=== PATIENT | male | born 1980 | race African-American/Black ===

== ENCOUNTER 2018-06-08 14:24 | Emergency (ER) | payer SELFPAY ==
[2018-06-08] MEDS ORDERED: ONDANSETRON 4 MG/2 ML VIAL IVPUSH ONE (14:38)
[2018-06-08] MEDS ORDERED: SODIUM CHLORIDE 1,000 ML IV STA (14:38)
--- NOTE | 2018-06-08 14:38 | PDOC ---
Rapid Medical Evaluation Chief Complaint: Nausea/Vomiting Time Seen by Provider: 06/08/18 14:37 Medical Evaluation: Allergies Allergy/AdvReac Type Severity Reaction Status Date / Time No Known Allergies Allergy Verified 06/08/18 14:34 06/08/18 14:37 The patient presents with a chief complaint of: abd pain I have performed a brief in-person evaluation of this patient. Pertinent physical exam findings: vss, I have ordered the following: labs, zofran, fluids The patient will proceed to the ED for further evaluation.
[2018-06-08 14:40] VITALS: BMI 27.1
--- NOTE | 2018-06-08 14:51 | PDOC ---
History of Present Illness - General Chief Complaint: Nausea/Vomiting Stated Complaint: VOMITTING /SIDE PAIN Time Seen by Provider: 06/08/18 14:37 - History of Present Illness Initial Comments: 37 year old smoker with PMH of hernia repair 30 years prior presenting with acute on chronic right lower quadrant pain, nausea, and vomiting. Patient states that he has had right lower quadrant abdominal pain for the past month, sharp, intermittent, maximum of 7/10, without obvious exacerbating/ relieving factors. States that the pain occasionally radiates down his right groin. He is coming in today because he has NBNB nausea/ vomiting x 1 about an hour prior to presentation. He is an occasional-moderate drinker with 5-6 drinks on infrequent weekends. Denies any recent travel, fevers, chills, diarrhea, headache, or other symptoms. He currently does not have a PCP because of insurance issues but was followed for years without known issues. 06/08/18 15:33 Past History - Past Medical History Allergies/Adverse Reactions: Allergies Allergy/AdvReac Type Severity Reaction Status Date / Time No Known Allergies Allergy Verified 06/08/18 14:34 COPD: No - Immunization History Immunization Up to Date: Yes - Suicide/Smoking/Psychosocial Hx Smoking History: Current every day smoker Number of Cigarettes Smoked Daily: 20 Information on smoking cessation initiated: No Hx Alcohol Use: Yes Drug/Substance Use Hx: No Review of Systems - Review of Systems Constitutional: No: Chills, Diaphoresis, Fever, Loss of Appetite HEENTM: No: Eye Pain, Blurred Vision, Tearing, Ear Pain Respiratory: No: Cough, Shortness of Breath, Wheezing Cardiac (ROS): No: Chest Pain, Edema, Irregular Heart Rate ABD/GI: Yes: Nausea, Vomiting. No: Diarrhea, Rectal Bleeding, Abdominal cramping, Tarry Stools : No: Dysuria, Discharge, Frequency Musculoskeletal: No: Back Pain, Gout, Joint Pain *Physical Exam - Vital Signs Last Vital Signs Temp Pulse Resp BP Pulse Ox 99.0 F 71 18 120/76 84 L 06/08/18 14:35 06/08/18 14:35 06/08/18 14:35 06/08/18 14:35 06/08/18 14:35 - Physical Exam General Appearance: Yes: Nourished, Appropriately Dressed. No: Apparent Distress HEENT: positive: EOMI, BALTA, Normal ENT Inspection, Normal Voice Neck: positive: Trachea midline, Normal Thyroid, Supple. negative: Tender, Rigid Respiratory/Chest: positive: Lungs Clear, Normal Breath Sounds. negative: Chest Tender, Respiratory Distress, Accessory Muscle Use Cardiovascular: positive: Regular Rhythm, Regular Rate Gastrointestinal/Abdominal: positive: Normal Bowel Sounds, Flat, Soft. negative : Tender Male Genitalia: positive: normal genitalia, other (hydrocele on the left side). negative: discharge, testicular tenderness Musculoskeletal: positive: Normal Inspection. negative: CVA Tenderness, Decreased Range of Motion Extremity: positive: Normal Capillary Refill, Normal Inspection, Normal Range of Motion. negative: Tender Integumentary: positive: Normal Color, Dry, Warm Neurologic: positive: educational technologist II-XII NML intact, Fully Oriented, Alert, Normal Mood/ Affect, Normal Response, Motor Strength 01/02 ED Treatment Course - LABORATORY CBC & Chemistry Diagram: 06/08/18 15:13 06/08/18 15:13 Medical Decision Making - Medical Decision Making 37 year old male with PMH of smoking presenting with nonspecific intermittent right lower abdominal pain for the past month with one episode of nausea/ vomiting today. Ct demonstrating right renal calculus non-obstructing and UA demonstrated microscopic hematuria. Patient no longer in pain and would like to go home. Will set him up for a clinic appointment in two days. Counselled on follow up and return precautions. Will DC home. 06/08/18 18:40 *DC/Admit/Observation/Transfer Diagnosis at time of Disposition: Renal calculi - Discharge Dispostion Disposition: HOME Condition at time of disposition: Improved Decision to Admit order: No - Referrals Referrals: [facility] [place] [facility] [place] [Provider Group] - Patient Instructions Printed Discharge Instructions: DI for Kidney Stones Additional Instructions: Your pain was possibly due to a previous kidney stone that had passed by the time the CT scan was performed. You likely have had multiple kidney stones during the past month. You need to stay well hydrated and quit smoking. You need to follow up with the primary care doctor with whom we are setting you up an appointment. Please follow up with them. Please return to the ED if you have worsening pain, nausea, vomiting, or other symptoms. - Post Discharge Activity Forms/Work/School Notes: Back to Work
--- NOTE | 2018-06-08 15:00 | PDOC ---
Attending Attestation - HPI HPI: 06/08/18 15:49 The patient is a 37 year old male, daily tobacco smoker, with a significant past medical history of, who presents to the emergency department with one month of increased right lower abdominal pain which intensified today with associated nausea and vomiting today. He reports his pain is intermittent, 7/10 in severity, and without any exacerbating or alleviating factors. He states his right lower abdominal pain radiates down his right lower extremity. The patient denies chest pain, shortness of breath, headache and dizziness. The patient denies fever, chills, diarrhea and constipation. The patient denies dysuria, frequency, urgency and hematuria. Allergies: NKDA Past surgical history: hernia repair Social history: daily tobacco use, occasional ETOH - Physicial Exam PE: 06/08/18 15:49 ROS: A complete review of 10 out of 10 review of systems is taken and is negative apart from what is previously mentioned below and in the HPI. Vitals: Triage vital signs reviewed General Appearance: No acute distress, well nourished, well developed Head: Atraumatic Eyes: Pupils equal reactive round, extraocular movement intact Neck: Supple; No nuchal rigidity Abdomen: (+) RLQ ttp. Soft, nondistended, normal bowel sounds, nontender to palpation Genitourinary: deferred to Dr. Jacobsen Extremities: Full range of motion to all extremities, no cyanosis, clubbing, or edema Skin: Warm and dry, no rashes or lesions, no rash, no petechiae Neuro: AOX3; Cranial Nerves 2-12 grossly intact, Strength intact to all extremities, Sensation intact to all extremities, - Medical Decision Making 06/08/18 15:49 Documentation prepared by Divya Velarde, acting as medical assistant secretary for Husam Frederick MD, <Divya Velarde - Last Filed: 06/08/18 16:06> - Resident Resident Name: Jordi Jacobsen - ED Attending Attestation I have performed the following: I have examined & evaluated the patient, The case was reviewed & discussed with the resident, I agree w/resident's findings & plan, Exceptions are as noted - Medical Decision Making 37 years old with chronic right-sided abdominal discomfort. Today slightly worsening abdominal discomfort right sided associated with one episode of nausea No fever no elevated white blood cell count patient's laboratory analysis notable for slightly elevated LFTs and a slightly elevated lipase There was no right upper quadrant tenderness palpation on the patient's examination A CT of the patient's abdomen pelvis demonstrated no acute appendicitis and no obstructing kidney stones Patient's urinalysis was notable for the presence of red blood cells Currently patient is feeling better ambulating tolerating fluids asking to go home At this time history examination is most consistent with a recently passed kidney stone We have arranged for the patient to follow-up in her clinic in 1-2 days to have his blood work rechecked for further evaluation of his elevated LFTs in the meantime patient will hydrate take Aleve twice a day for the next 2 days he will return to the emergency department immediately for any fever any abdominal pain that returns or for any concerns. Findings, need for follow-up and strict return instructions discussed with patient. <Husam Frederick - Last Filed: 06/08/18 18:46>
[2018-06-08 15:29] LABS: BASO % 1.1 % (0-2.0); EOS % 0.1 % (0-4.5); HEMATOCRIT 40.3 % (35.4-49); HEMOGLOBIN 13.5 GM/dL (11.7-16.9); LYMPH % 23.6 % (8-40); MCH 31.7 pg (25.7-33.7); MCHC 33.5 g/dl (32.0-35.9); MEAN CELL VOLUME 94.5 fl (80-96); MEAN PLT VOLUME 8.1 fl (7.5-11.1); NEUT % 62.2 % (42.8-82.8); PLATELET COUNT 266 K/MM3 (134-434); RBC 4.26 M/mm3 (4.00-5.60); RDW 13.7 % (11.9-15.9); WHITE BLOOD COUNT 4.7 K/mm3 (4.0-10.0)
[2018-06-08] MEDS ORDERED: ONDANSETRON 4 MG/2 ML VIAL ONE (15:51)
[2018-06-08 15:57] LABS: ALBUMIN 4.1 g/dl (3.4-5.0); ALK PHOS 93 U/L (45-117); ANION GAP 7 MMOL/L (8-16); BILIRUBIN,TOTAL 1.1 mg/dL (0.2-1); BLOOD UREA NITROGEN 12 mg/dL (7-18); CALCIUM 9.6 mg/dL (8.5-10.1); CHLORIDE 106 mmol/L (98-107); CO2 27 mmol/L (21-32); CREATININE 0.9 mg/dL (0.55-1.3); GLUCOSE,RANDOM 88 mg/dL (74-106); LIPASE 70 U/L (73-393); POTASSIUM 3.8 mmol/L (3.5-5.1); SGOT/AST 84 U/L (15-37); SGPT/ALT 77 U/L (13-61); SODIUM 139 mmol/L (136-145); TOT PROT 7.8 g/dl (6.4-8.2)
[2018-06-08 17:03] LABS: URINE APPEARANCE CLEAR; URINE BILIRUBIN NEGATIVE (<2.0 mg/dL); URINE COLOR AMBER; URINE GLUCOSE (UA) NEGATIVE (NEGATIVE); URINE KETONE 1+ (NEGATIVE); URINE LEUK ESTERASE TRACE (NEGATIVE); URINE NITRITE NEGATIVE (NEGATIVE); URINE PROTEIN 2+ (NEGATIVE)
[2018-06-08 17:33] LABS: URINE BACTERIA RARE /hpf (NONE SEEN); URINE HYALINE CAST 3 /lpf; URINE MUCUS MANY
[2018-06-08 18:29] VITALS: BP 136/82; PULSE 59; TEMP 98.4
== END 2018-06-08 18:59 | disposition home or self-care (01) ==
LOC: JER 14:24
PROC: 3E0337Z Introduction of Electrolytic and Water Balance Substance into Peripheral Vein, Percutaneous Approach (ICD-10-PCS; principal; 2018-06-08)
DX: N20.0 Calculus of kidney (principal); R31.29 Other microscopic hematuria; F17.210 Nicotine dependence, cigarettes, uncomplicated
CPT/HCPCS: 36415; 71046-TC-FY; 74177-TC; 80053; 81003; 81015; 83690; 85025; 99282-25; J7030

== ENCOUNTER 2018-06-18 06:18 | Emergency (ER) | payer SELFPAY ==
[2018-06-18] MEDS ORDERED: ALBUTEROL SO4 2.5/IPRATROPIUM 0.5 INH SOL 3 ML VIAL.NEB. NEB ONE ×2 (06:34→08:32)
[2018-06-18 06:39] VITALS: TEMP 98.6; BMI 25.8
[2018-06-18] MEDS ORDERED: methylPREDNISolone NA SUCC 125 MG/2 ML VIAL IVPUSH ONE (06:48)
[2018-06-18] MEDS ORDERED: methylPREDNISolone NA SUCC 125 MG/2 ML VIAL ONE (06:58)
[2018-06-18 07:09] LABS: BASO % 0.6 % (0-2.0); EOS % 0.7 % (0-4.5); HEMATOCRIT 39.7 % (35.4-49); HEMOGLOBIN 13.5 GM/dL (11.7-16.9); LYMPH % 25.8 % (8-40); MCH 32.3 pg (25.7-33.7); MCHC 33.9 g/dl (32.0-35.9); MEAN CELL VOLUME 95.3 fl (80-96); MEAN PLT VOLUME 8.4 fl (7.5-11.1); MONO % 14.9 % (3.8-10.2); PLATELET COUNT 278 K/MM3 (134-434); RBC 4.17 M/mm3 (4.00-5.60); RDW 13.6 % (11.9-15.9); WHITE BLOOD COUNT 5.6 K/mm3 (4.0-10.0)
--- NOTE | 2018-06-18 07:19 | PDOC ---
History of Present Illness <Callie Wood - Last Filed: 06/18/18 09:23> - History of Present Illness Initial Comments: 37yo M with no significant PMH presenting with shortness of breath. Patient says that the recent cold weather has made it difficult to breathe. He denies a history of asthma, COPD, or sleep apnea despite being worked up previously with a sleep study. He has had issues with this since around age 8 or 9 and has snored loudly since that time. Patient has never been seen by an ENT doctor. He has smoked about 5-7 cigarettes daily for the past ten years. Also reporting cough productive of clear sputum and scratchy throat. No fevers, chills, or chest pain. <Callie Mirza - Last Filed: 06/18/18 21:05> - General Chief Complaint: Shortness of Breath Stated Complaint: DIFFICULTY BREATHING Time Seen by Provider: 06/18/18 07:17 Past History <Callie Wood - Last Filed: 06/18/18 09:23> - Past Medical History COPD: No - Immunization History Immunization Up to Date: Yes - Suicide/Smoking/Psychosocial Hx Smoking History: Current every day smoker Have you smoked in the past 12 months: Yes Number of Cigarettes Smoked Daily: 7 Information on smoking cessation initiated: No Hx Alcohol Use: No Drug/Substance Use Hx: No Substance Use Type: None <Callie Mirza Last Filed: 06/18/18 21:05> - Past Medical History Allergies/Adverse Reactions: Allergies Allergy/AdvReac Type Severity Reaction Status Date / Time No Known Allergies Allergy Verified 06/18/18 06:37 Home Medications: Ambulatory Orders predniSONE [Deltasone -] 40 mg PO DAILY #6 tablet 06/18/18 Review of Systems - Review of Systems Comments:: Constitutional: no fever, no chills HEENT: no throat pain, no dysphagia Cardiovascular: no chest pain, no palpitations Respiratory: +cough, +shortness of breath Gastrointestinal: no abdominal pain, no nausea, no vomiting Genitourinary: no dysuria, no frequency Musculoskeletal: no myalgia, no arthralgia Skin: no rash, no itching Neurologic: no headache, no dizziness <Callie Mirza Last Filed: 06/18/18 21:05> *Physical Exam - Vital Signs Last Vital Signs Temp Pulse Resp BP Pulse Ox 98.6 F 44 L 18 116/74 99 06/18/18 06:20 06/18/18 08:22 06/18/18 08:22 06/18/18 08:22 06/18/18 08:22 <Callie Wood - Last Filed: 06/18/18 09:23> - Vital Signs Last Vital Signs Temp Pulse Resp BP Pulse Ox 98.6 F 56 L 16 114/74 98 06/18/18 06:20 06/18/18 06:20 06/18/18 06:20 06/18/18 06:20 06/18/18 06:20 - Physical Exam Comments: General: Awake, alert, and fully oriented, in no acute distress Head: no signs of trauma Eyes: EOMI ENT: Moist mucus membranes; non erythematous throat with no lesions or masses; uvula midline Neck: Normal ROM, supple Lungs: Lungs clear, Normal breath sounds; Loud sonorous breathing noted when patient is sleeping Cardio: Regular rhythm, S1 and S2 present Abdomen: Soft, nontender. Extremities: Normal range of motion, Distal pulses present SKIN: Warm, Dry, normal turgor Neurologic: Cranial nerves II through XII grossly intact. Normal speech <Callie Mirza - Last Filed: 06/18/18 21:05> ED Treatment Course - LABORATORY CBC & Chemistry Diagram: 06/18/18 06:52 06/18/18 06:52 - ADDITIONAL ORDERS Additional order review: Laboratory Results 06/18/18 06:52 Sodium 138 Potassium 4.0 Chloride 103 Carbon Dioxide 29 Anion Gap 6 L BUN 16 Creatinine 0.9 Creat Clearance w eGFR > 60 Random Glucose 88 Calcium 8.8 Total Bilirubin 0.9 AST 42 H ALT 52 Alkaline Phosphatase 76 Total Protein 7.1 Albumin 3.8 06/18/18 08:50 Group A Strep Rapid Antigen - Final Throat 06/18/18 06:52 RBC 4.17 MCV 95.3 MCHC 33.9 RDW 13.6 MPV 8.4 Neutrophils % 58.0 Lymphocytes % 25.8 Monocytes % 14.9 H Eosinophils % 0.7 D Basophils % 0.6 - Medications Given in the ED: ED Medications Discontinued Medications Generic Name Dose Route Start Last Admin Trade Name Freq PRN Reason Stop Dose Admin Albuterol/Ipratropium 1 amp 06/18/18 08:32 06/18/18 08:54 Duoneb - NEB 06/18/18 08:33 Not Given ONCE ONE Methylprednisolone Sodium Succinate 125 mg 06/18/18 06:48 06/18/18 07:02 Solu-Medrol - IVPUSH 06/18/18 06:49 125 mg ONCE ONE Administration <Callie Wood - Last Filed: 06/18/18 09:23> - LABORATORY CBC & Chemistry Diagram: 06/18/18 06:52 06/18/18 06:52 - ADDITIONAL ORDERS Additional order review: 06/18/18 06:52 RBC 4.17 MCV 95.3 MCHC 33.9 RDW 13.6 MPV 8.4 Neutrophils % 58.0 Lymphocytes % 25.8 Monocytes % 14.9 H Eosinophils % 0.7 D Basophils % 0.6 - Medications Given in the ED: ED Medications Discontinued Medications Generic Name Dose Route Start Last Admin Trade Name Freq PRN Reason Stop Dose Admin Methylprednisolone Sodium Succinate 125 mg 06/18/18 06:48 06/18/18 07:02 Solu-Medrol - IVPUSH 06/18/18 06:49 125 mg ONCE ONE Administration <Callie Mirza - Last Filed: 06/18/18 21:05> Medical Decision Making - Medical Decision Making 37yo M with no significant PMH presenting with shortness of breath. -Labs: no anemia or leukocytosis -CXR: no acute pathology -Duoneb and solumedrol: patient reports some alleviation of his cough and shortness of breath. He says that after receiving the medicine, he has been able to fall asleep. - Rapid Strep test negative -ENT referral -Prednisone 40 x 3 days sent to pharmacy -Discharged. Patient amenable to plan. 06/18/18 21:02 <Callie Mirza - Last Filed: 06/18/18 21:05> *DC/Admit/Observation/Transfer - Discharge Dispostion Decision to Admit order: No <Callie Wood - Last Filed: 06/18/18 09:23> <Callie Mirza - Last Filed: 06/18/18 21:05> Diagnosis at time of Disposition: Shortness of breath - Discharge Dispostion Disposition: HOME Condition at time of disposition: Stable - Prescriptions Prescriptions: predniSONE [Deltasone -] 40 mg PO DAILY #6 tablet - Patient Instructions Printed Discharge Instructions: DI for Shortness of Breath Additional Instructions: Follow up with [facility] ENT clinic- call [phone] for appointment.
[2018-06-18 07:35] LABS: ALBUMIN 3.8 g/dl (3.4-5.0); ALK PHOS 76 U/L (45-117); ANION GAP 6 MMOL/L (8-16); BILIRUBIN,TOTAL 0.9 mg/dL (0.2-1); BLOOD UREA NITROGEN 16 mg/dL (7-18); CALCIUM 8.8 mg/dL (8.5-10.1); CHLORIDE 103 mmol/L (98-107); CO2 29 mmol/L (21-32); CREATININE 0.9 mg/dL (0.55-1.3); GLUCOSE,RANDOM 88 mg/dL (74-106); SGOT/AST 42 U/L (15-37); SGPT/ALT 52 U/L (13-61); SODIUM 138 mmol/L (136-145); TOT PROT 7.1 g/dl (6.4-8.2)
--- NOTE | 2018-06-18 07:48 | PDOC ---
Attending Attestation - Resident Resident Name: Callie Mirza - ED Attending Attestation I have performed the following: I have examined & evaluated the patient, The case was reviewed & discussed with the resident, I agree w/resident's findings & plan, Exceptions are as noted - HPI HPI: 37 yo M presents with SOB. He has chronic history of sonorous breathing and snoring for the past 20 years. Has been worked up with a sleep study previously but not by ENT. He states that he chronically has loud inspirations, but does not know why. Today he noticed he has shortness of breath, but no fever, leg swelling, chest pain. +Cough with clear sputum. +Sore throat. - Physicial Exam PE: GENERAL: Awake, alert, and fully oriented, in no acute distress. +Sonorous inspirations. HEAD: No signs of trauma EYES: PERRLA, EOMI, sclera anicteric, conjunctiva clear ENT: Auricles normal inspection, hearing grossly normal, nares patent, oropharynx erythematous without exudates. Uvula midline. Moist mucosa NECK: Normal ROM, supple, no lymphadenopathy, JVD, or masses LUNGS: Breath sounds equal, clear to auscultation bilaterally. No wheezes, and no crackles HEART: Regular rate and rhythm, normal S1 and S2, no murmurs, rubs or gallops ABDOMEN: Soft, nontender, normoactive bowel sounds. No guarding, no rebound. No masses EXTREMITIES: Normal range of motion, no edema. No clubbing or cyanosis. No cords, erythema, or tenderness NEUROLOGICAL: Cranial nerves II through XII grossly intact. Normal speech, normal gait SKIN: Warm, Dry, normal turgor, no rashes or lesions noted. - Medical Decision Making Pt with erythema of the throat, and in light of prior history of loud breathing (not stridor, as it is only with inspiration), will give a course of steroids for his pharyngitis. ENT referral to [facility] for further evaluation.
[2018-06-18 08:23] VITALS: BP 116/74; PULSE 44
== END 2018-06-18 09:56 | disposition home or self-care (01) ==
LOC: JER 06:18
PROC: 3E0F7GC Introduction of Other Therapeutic Substance into Respiratory Tract, Via Natural or Artificial Opening (ICD-10-PCS; principal; 2018-06-18)
PROC: 3E0333Z Introduction of Anti-inflammatory into Peripheral Vein, Percutaneous Approach (ICD-10-PCS; 2018-06-18)
DX: R06.02 Shortness of breath (principal)
CPT/HCPCS: 36415; 71045-TC-FY; 80053; 85025; 87070; 87430; 99282-25

== ENCOUNTER 2018-12-22 08:25 | Inpatient (IN) | payer OTHER ==
[2018-12-22 08:38] VITALS: BMI 26.6
[2018-12-22] MEDS ORDERED: ALBUTEROL SO4 2.5/IPRATROPIUM 0.5 INH SOL 3 ML VIAL.NEB. NEB ONE ×3 (09:30→10:00)
[2018-12-22] MEDS ORDERED: methylPREDNISolone NA SUCC 125 MG/2 ML VIAL IVPB ONE (09:30)
[2018-12-22] MEDS ORDERED: methylPREDNISolone NA SUCC 125 MG/2 ML VIAL ONE (09:31)
[2018-12-22 10:02] LABS: BASO % 0.8 % (0-2.0); EOS % 0.6 % (0-4.5); HEMATOCRIT 42.1 % (35.4-49); HEMOGLOBIN 14.4 GM/dL (11.7-16.9); LYMPH % 23.3 % (8-40); MCH 33.1 pg (25.7-33.7); MCHC 34.2 g/dl (32.0-35.9); MEAN CELL VOLUME 96.9 fl (80-96); MEAN PLT VOLUME 8.3 fl (7.5-11.1); MONO % 10.4 % (3.8-10.2); NEUT % 64.9 % (42.8-82.8); PLATELET COUNT 275 K/MM3 (134-434); RBC 4.34 M/mm3 (4.00-5.60); RDW 13.5 % (11.9-15.9); WHITE BLOOD COUNT 7.3 K/mm3 (4.0-10.0)
--- NOTE | 2018-12-22 10:18 | PDOC ---
Documentation entered by Divya Velarde SCRIBE, acting as scribe for Kathie Car MD. aKthie Car MD: This documentation has been prepared by the Prachi savage Amanda, SCRIBE, under my direction and personally reviewed by me in its entirety. I confirm that the documentation accurately reflects all work, treatment, procedures, and medical decision making performed by me. History of Present Illness - General Chief Complaint: Cold Symptoms Stated Complaint: cold symptoms Time Seen by Provider: 12/22/18 09:22 History Source: Patient Exam Limitations: No Limitations - History of Present Illness Initial Comments: 12/22/18 10:01 The patient is a 38 year old male with no significant past medical history, who presents to the emergency department with shortness of breath since yesterday morning. The patient reports associated chest tightness with his SOB. He denies use of nebulizers or inhalers at home. He denies recent illness. He denies recent travels. He states he had a similar episode last year and was found to have walking pneumonia. He reports shortness of breath at rest and increased with slight exertion. The patient denies chest pain, headache and dizziness. The patient denies fever , chills, diarrhea and constipation. The patient denies dysuria, frequency, urgency and hematuria. Allergies: NKDA Past surgical history: hernia repair Social history: 10+ year tobacco use (5-10 cigarettes) s/p 2 days cessation, occasional ETOH Past History - Past Medical History Allergies/Adverse Reactions: Allergies Allergy/AdvReac Type Severity Reaction Status Date / Time No Known Allergies Allergy Verified 12/22/18 08:38 Home Medications: Ambulatory Orders NK [No Known Home Medication] 12/22/18 COPD: No - Immunization History Immunization Up to Date: Yes - Suicide/Smoking/Psychosocial Hx Smoking History: Current every day smoker Have you smoked in the past 12 months: Yes Number of Cigarettes Smoked Daily: 7 Information on smoking cessation initiated: No Hx Alcohol Use: No Drug/Substance Use Hx: No Substance Use Type: None Review of Systems - Review of Systems Able to Perform ROS?: Yes Comments:: 12/22/18 10:01 CONSTITUTIONAL: Absent: fever, no chills, no fatigue EYES: Absent: visual changes ENT: Absent: ear pain, no sore throat CARDIOVASCULAR: Absent: chest pain, no palpitations RESPIRATORY: (+) SOB and chest tightness. Absent: cough GASTROINTESTINAL: Absent: abdominal pain, no nausea, no vomiting, no constipation, no diarrhea GENITOURINARY: Absent: dysuria, no frequency, no hematuria MUSCULOSKELETAL: Absent: back pain, no arthralgia, no myalgia SKIN: Absent: rash NEURO: Absent: headache *Physical Exam - Vital Signs Last Vital Signs Temp Pulse Resp BP Pulse Ox 98 F 63 18 114/75 98 12/22/18 08:36 12/22/18 08:36 12/22/18 08:36 12/22/18 08:36 12/22/18 08:36 - Physical Exam Comments: 12/22/18 10:02 GENERAL: The patient is in no acute distress. HEAD: Normal EYES: PERRLA, EOMI, sclera anicteric, conjunctiva clear. ENT: Ears normal, nares patent, oropharynx clear without exudates. Moist mucous membranes. NECK: Normal range of motion, supple without lymphadenopathy, JVD, or masses. LUNGS: (+) faint expiratory wheezing. (+) stridor noted particularly when pt drifts off to sleep. Breath sounds equal, clear to auscultation bilaterally. no crackles. HEART:Regular rate and rhythm, normal S1 and S2 without murmur, rub or gallop. ABDOMEN: Soft, nontender, no guarding, no rebound. EXTREMITIES: Normal range of motion, No clubbing NEUROLOGICAL: Cranial nerves II through XII grossly intact. Normal speech. No focal neurological deficits. SKIN: Warm, Dry, normal turgor, no rashes or lesions noted. 12/24/18 08:30 ED Treatment Course - LABORATORY CBC & Chemistry Diagram: 12/23/18 07:40 12/23/18 07:40 - ADDITIONAL ORDERS Additional order review: 12/22/18 09:55 RBC 4.34 MCV 96.9 H MCHC 34.2 RDW 13.5 MPV 8.3 Neutrophils % 64.9 Lymphocytes % 23.3 Monocytes % 10.4 H Eosinophils % 0.6 Basophils % 0.8 - RADIOLOGY Radiology Studies Ordered: Category Date Time Status CHEST X-RAY PORTABLE* [RAD] Stat Radiology 12/22/18 09:30 Completed - Medications Given in the ED: ED Medications Discontinued Medications Generic Name Dose Route Start Last Admin Trade Name Freq PRN Reason Stop Dose Admin Albuterol/Ipratropium 1 amp 12/22/18 09:30 12/22/18 09:36 Duoneb - NEB 12/22/18 09:31 1 amp ONCE ONE Administration Albuterol/Ipratropium 1 amp 12/22/18 10:00 12/22/18 10:01 Duoneb - NEB 12/22/18 10:01 1 amp ONCE ONE Administration Methylprednisolone Sodium Succinate 125 mg 12/22/18 09:30 12/22/18 09:53 Solu-Medrol - IVPB 12/22/18 09:31 125 mg ONCE ONE Administration Medical Decision Making - Critical Care Time Total Critical Care Time (minutes): 35 Critical Care Statement: The care of this patient involved high complexity decision making to prevent further life threatening deterioration of the patient 's condition and/or to evaluate & treat vital organ system(s) failure or risk of failure. - Medical Decision Making 12/22/18 10:14 38 yo M presenting to the ER with shortness of breath and wheezing Pt states symptoms began yesterday No fevers or chills This last happened last year, was treated with nebs and steroids He was seen as an outpatient by ENT who told him that he had Pt denies recent illness No allergies that he is aware of No seasonal allergies No globus sensation in the throat Pt was a former tobacco user, stopped 2 days ago CXR - nml 12/22/18 10:17 Laboratory Tests 12/22/18 09:55 WBC 7.3 Hgb 14.4 Hct 42.1 Plt Count 275 12/22/18 10:18 12/22/18 10:23 ENT consulted He will see this patient in consultation Magnesium ordered 12/22/18 10:49 Laboratory Tests 12/22/18 09:55 Sodium 140 Potassium 4.5 Chloride 105 Carbon Dioxide 31 BUN 16 Creatinine 1.0 Random Glucose 102 12/22/18 11:41 EKG - SR rate of 56 bpm, axis nml, diffuse st elevation , no st depression, t waves upright 12/22/18 13:58 CT chest nml Admitted to hospitalist service *DC/Admit/Observation/Transfer Diagnosis at time of Disposition: Inspiratory stridor - Discharge Dispostion Condition at time of disposition: Fair Decision to Admit order: Yes - Referrals - Patient Instructions - Post Discharge Activity
[2018-12-22] MEDS ORDERED: LORATADINE 10 MG TABLET PO ONE (10:23)
[2018-12-22] MEDS ORDERED: MAGNESIUM 1GM/D5W - 1 GM/100 ML IVPB IVPB ONE (10:27)
[2018-12-22] MEDS ORDERED: LORATADINE 10 MG TABLET ONE (10:27)
[2018-12-22 10:34] LABS: ALBUMIN 3.8 g/dl (3.4-5.0); ALK PHOS 93 U/L (45-117); ANION GAP 4 MMOL/L (8-16); BILIRUBIN,TOTAL 0.8 mg/dL (0.2-1); BLOOD UREA NITROGEN 16 mg/dL (7-18); CALCIUM 9.2 mg/dL (8.5-10.1); CHLORIDE 105 mmol/L (98-107); CO2 31 mmol/L (21-32); GLUCOSE,RANDOM 102 mg/dL (74-106); POTASSIUM 4.5 mmol/L (3.5-5.1); SGOT/AST 22 U/L (15-37); SGPT/ALT 30 U/L (13-61); SODIUM 140 mmol/L (136-145); TOT PROT 7.2 g/dl (6.4-8.2)
--- NOTE | 2018-12-22 12:31 | EKG ---
Test Reason : Blood Pressure : / mmHG Vent. Rate : 056 BPM Atrial Rate : 056 BPM P-R Int : 128 ms QRS Dur : 086 ms QT Int : 404 ms P-R-T Axes : 045 051 052 degrees QTc Int : 389 ms SINUS BRADYCARDIA WITH SINUS ARRHYTHMIA ACUTE PERICARDITIS vs anterior wall ischemia ABNORMAL ECG NO PREVIOUS ECGS AVAILABLE Confirmed by GRADY BLANCHARD MD ([id number]) on 12/22/2018 12:30:32 PM Referred By: Confirmed By:GRADY BLANCHARD MD
[2018-12-22 13:16] LABS: ARTERIAL BLD GAS O2 SATURATION 96.7 % (95-98); ARTERIAL BLOOD GAS BASE EXCESS 1.9 meq/l (-2-2); ARTERIAL BLOOD GAS PCO2 47.8 mmHg (35-45); ARTERIAL BLOOD GAS PO2 87.8 mmHg (80-105); ARTERIAL BLOOD GAS pH 7.38 (7.35-7.45)
[2018-12-22 13:17] LABS: ALLENS TEST POSITIVE
--- NOTE | 2018-12-22 16:04 | ECHO ---
Name: TRUNG GUZMAN Exam:Adult Echocardiogram Study Date: 12/22/2018 02:38 PM Age: 38 yrs Reason For Study: Chest pain pericarditis Height: 69 in Weight: 180 lb BSA: 2.0 m2 MMode/2D Measurements & Calculations IVSd: 0.88 cm Ao root diam: 3.3 cm LVIDd: 4.3 cm LA dimension: 3.1 cm LVIDs: 3.1 cm LVPWd: 0.87 cm EDV(Teich): 84.2 ml LVOT diam: 2.1 cm ESV(Teich): 36.7 ml Doppler Measurements & Calculations MV E max teofilo: 84.9 cm/sec Ao V2 max: 152.0 cm/sec MV A max teofilo: 22.7 cm/sec Ao max P.2 mmHg MV E/A: 3.7 Ao V2 mean: 98.5 cm/sec MV dec time: 0.25 sec Ao mean P.8 mmHg Ao V2 VTI: 26.7 cm MIRNA(I,D): 2.8 cm2 MIRNA(V,D): 2.5 cm2 LV V1 max P.5 mmHg SV(LVOT): 74.3 ml LV V1 mean P.9 mmHg LV V1 max: 105.6 cm/sec LV V1 mean: 63.1 cm/sec LV V1 VTI: 20.7 cm TR max teofilo: 213.2 cm/sec PI end-d teofilo: 59.7 cm/sec TR max P.2 mmHg Med Peak E' Teofilo: 9.7 cm/sec Med E/e': 8.7 Lat Peak E' Teofilo: 4.3 cm/sec Lat E/e': 19.8 Procedure A two-dimensional transthoracic echocardiogram with color flow and Doppler was performed. Left Ventricle The left ventricular size, thickness and function are normal. The left ventricular ejection fraction is normal. The left ventricular wall motion is normal. Right Ventricle The right ventricle is normal in size and function. Atria Normal left and right atrial size and function. Mitral Valve The mitral valve is normal in structure and function. There is no mitral valve stenosis. There is tra ce mitral regurgitation. Tricuspid Valve The tricuspid valve is normal in structure and function. There is no tricuspid stenosis. There is tra ce tricuspid regurgitation. Right ventricular systolic pressure is normal. Aortic Valve The aortic valve is not well visualized. No hemodynamically significant valvular aortic stenosis. No aortic regurgitation is present. Pulmonic Valve The pulmonic valve is not well visualized. Great Vessels The aortic root is normal size. Pericardium/Pleura There is no pericardial effusion. Interpretation Summary The left ventricular size, thickness and function are normal There is trace tricuspid regurgitation. Right ventricular systolic pressure is normal. The left ventricular ejection fraction is normal. The left ventricular wall motion is normal. There is trace mitral regurgitation. MD Garry Boone 12/22/2018 04:04 PM
--- NOTE | 2018-12-22 17:49 | HP ---
Admitting History and Physical - Admission Chief Complaint: SOB History of Present Illness: 38 year old M with no past medical history presents to ED for evaluation of SOB. Mr. Friedman reports mild difficulty swallowing two days ago which progressed to mild dyspnea at rest and with activity. He denies fever/chills/N/V /ALCALA/D,palpitations, edema or weight gain. No recent sick contacts or recent travel. Jw endorses mild left sided chest pain and wheezing. He smokes 1/ 2PPD and stopped two days ago when his symptoms began. Pt reports similar episode last May 2018, in the setting of PNA; and was treated with nebs, streoids and Abx. In ED Vitals were: BP 114/75, HR 63, T 98, RR 18, O2 sat 98 ENT consulted for what appeared to be sx of stridor. EKG: VR 56bpm, AILYN 128ms, QRS 86ms, QT/QTc 404/389ms. J-point elevation V2-6. CT chest no acute findings CT neck: nor narrowing of the airway. Pt admitted for further evaluation as scope by ENT demonstrated decreased mobility of the vocal chords with inspiration. 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 History of Recent Travel: No Home Medications - Allergies Allergies/Adverse Reactions: Allergies Allergy/AdvReac Type Severity Reaction Status Date / Time No Known Allergies Allergy Verified 12/22/18 08:38 - Home Medications Home Medications: Ambulatory Orders NK [No Known Home Medication] 12/22/18 Family Disease History - Family Disease History Family Disease History: Other: Grandparent (alive (90) DMII), Father (alive (60 ) DMII), Mother (alive (65) OA), Brother (alive(44) healthy), Sister (alive (20 ) well) Review of Systems - Review of Systems Constitutional: reports: No Symptoms Eyes: reports: No Symptoms HENT: reports: Difficult Swallowing Neck: reports: No Symptoms Cardiovascular: reports: Chest Pain, Shortness of Breath Respiratory: reports: SOB, Wheezing Gastrointestinal: reports: No Symptoms Genitourinary: reports: No Symptoms Breasts: reports: No Symptoms Reported Musculoskeletal: reports: No Symptoms Integumentary: reports: No Symptoms Neurological: reports: No Symptoms Endocrine: reports: No Symptoms Hematology/Lymphatic: reports: No Symptoms Psychiatric: reports: No Symptoms Physical Examination Vital Signs: Vital Signs Temperature 98 F 12/22/18 14:37 Pulse Rate 60 12/22/18 14:37 Respiratory Rate 18 12/22/18 14:37 Blood Pressure 127/77 12/22/18 14:37 O2 Sat by Pulse Oximetry (%) 96 12/22/18 14:37 Constitutional: Yes: Well Nourished, No Distress, Calm Eyes: Yes: Conjunctiva Clear, EOM Intact, PERRL HENT: Yes: Atraumatic, Normocephalic Neck: Yes: Supple, Trachea Midline Cardiovascular: Yes: Regular Rate and Rhythm Respiratory: Yes: Accessory Muscle Use, Stridor (when not phonating), Wheezes ( inspiratory wheeze) Gastrointestinal: Yes: Normal Bowel Sounds, Soft ...Rectal Exam: Yes: Deferred Breast(s): Yes: WNL Musculoskeletal: Yes: WNL Extremities: Yes: WNL Edema: No Peripheral Pulses WNL: Yes Peripheral Pulses: Left Radial: 2+, Right Radial: 2+ Integumentary: Yes: WNL Neurological: Yes: Alert, Oriented ...Motor Strength: WNL Psychiatric: Yes: WNL Labs: CBC, BMP 12/22/18 09:55 12/22/18 09:55 Imaging - Results X-ray: Report Reviewed (CXR 12/22/2018 No evidence of active pulmonary disease. No PTX, no large pleural effusion is seen.) Cat Scan: Report Reviewed (CT soft tissues of neck 12/22/2018 IMPRESSION: Almost borderline left upper neck jugular chain lymph node which is nonspecific. The airway is patent and symmetric without narrowing. Evaluation of the airway at the level of the larynx appears unremarkable. No discrete mass lesion or abnormal enhancement is identified. Correlate clinically to determine further evaluation and follow-up. Reported By: Tai Jenkins MD 12/22/[address] chest with contrast 12/22/18 IMPRESSION: Normal CT scan of the chest with no evidence of acute pathology. Please see above discussion. Reported By: Kit Garcia MD 12/22/18 2535) Other: Report Reviewed (ECHO 12/22/2018 Impression: LV size, thickness and function are normal. Trace TR. RV systolic function is normal. LV EF normal. LV mall motion is normal. Trace MR) Problem List - Problems (1) Prophylactic measure Code(s): Z29.9 - ENCOUNTER FOR PROPHYLACTIC MEASURES, UNSPECIFIED (2) Inspiratory stridor Code(s): R06.1 - STRIDOR (3) Shortness of breath Code(s): R06.02 - SHORTNESS OF BREATH Assessment/Plan 38 year old male with no significant past medical history, who presents to the emergency department with shortness of breath noted to have inflammation and decrease mobility of the vocal chord admitted for further management. 1. Stridor -Pt being followed by ENT: Dr. Carr -recommends MRI with contrast of brain with additional imaging of brainstem to aortic arch to evaluate for injury to phrenic nerve -claritin, nebs -daily low dose steroids -f/u VIRAL resp PCR panel 2. PPX bowel regimen with senna and colace ambulate as tolerated OOB to chair SC heparin BID DISPO: currently in observation status -home after w/u complete, he will need outpt ENT follow up Code status: Full Visit type - Emergency Visit Emergency Visit: Yes ED Registration Date: 12/22/18 Care time: The patient presented to the Emergency Department on the above date and was hospitalized for further evaluation of their emergent condition. - New Patient This patient is new to me today: Yes Date on this admission: 12/22/18 - Critical Care Critical Care patient: No
[2018-12-22] MEDS ORDERED: DOCUSATE SODIUM 100 MG CAPSULE (FP) PO PRN (19:32)
[2018-12-22] MEDS ORDERED: ALBUTEROL SO4 2.5/IPRATROPIUM 0.5 INH SOL 3 ML VIAL.NEB. NEB PRN (19:32)
[2018-12-22] MEDS ORDERED: SENNOSIDES 8.6MG TABLET (FP) PO PRN (19:32)
[2018-12-22] MEDS ORDERED: ACETAMINOPHEN 325 MG TABLET (FP) PO PRN (19:34)
[2018-12-22] MEDS: HEPARIN NA (PORCINE) 5,000 UNITS/ML 1ML VIAL SQ SCH (22:38)
--- NOTE | 2018-12-23 06:22 | CONSULT ---
Consult - text type - Consultation Consultation Note: ENT Consult Seen yesterday in ER, but was unable to log in to EMR system 38 yo man with difficulty breathing for years, and sudden worsening in the last day. P/WD thin BM laying comfortably in bed, in NAD Mild inspiratory stridor on forceful inspiration, not at rest Neck normal OC/OP normal Nose normal Flexible laryngoscopy reveals a left deviated septum. Right nasal cavity and nasopharynx are normal. Hypopharynx is normal. Retrodisplaced epiglottis. No laryngeal masses. Right true vocal cord is severely paretic, with 2 mm of abduction on inspiration. Left true vocal cord is immobile and midline. 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 Possible causes are MANAGER CARDIAC CATH and neurologic disease, paradoxical vocal cord motion, functional disorder, and lesions anywhere along the pathway from the brainstem to the entire course of the recurrent laryngeal nerves Recommend MRI of the brainstem to aortic arch with contrast to assess the recurrent laryngeal nerve pathways and MANAGER CARDIAC CATH. Would also recommend pulmonary evaluation for current acute symptoms. If desaturation becomes an issue, can be intubated or undergo a surgical airway placement
[2018-12-23 08:34] LABS: BASO % 0.6 % (0-2.0); EOS % 0.1 % (0-4.5); HEMATOCRIT 40.8 % (35.4-49); HEMOGLOBIN 14.1 GM/dL (11.7-16.9); LYMPH % 24.7 % (8-40); MCH 33.3 pg (25.7-33.7); MCHC 34.5 g/dl (32.0-35.9); MEAN CELL VOLUME 96.5 fl (80-96); MEAN PLT VOLUME 8.7 fl (7.5-11.1); MONO % 8.4 % (3.8-10.2); NEUT % 66.2 % (42.8-82.8); PLATELET COUNT 276 K/MM3 (134-434); RBC 4.22 M/mm3 (4.00-5.60); RDW 13.4 % (11.9-15.9); WHITE BLOOD COUNT 10.5 K/mm3 (4.0-10.0)
[2018-12-23 09:10] LABS: INR 0.91 (0.83-1.09); PROTHROMBIN TIME (PATIENT) 10.7 SEC (9.7-13.0)
[2018-12-23 09:11] LABS: ALBUMIN 3.6 g/dl (3.4-5.0); ALK PHOS 80 U/L (45-117); ANION GAP 6 MMOL/L (8-16); BILIRUBIN,TOTAL 0.6 mg/dL (0.2-1); BLOOD UREA NITROGEN 18 mg/dL (7-18); CHLORIDE 106 mmol/L (98-107); CO2 30 mmol/L (21-32); GLUCOSE,RANDOM 88 mg/dL (74-106); MAGNESIUM 2.3 mg/dL (1.8-2.4); PHOSPHOROUS 4.4 mg/dL (2.5-4.9); POTASSIUM 4.3 mmol/L (3.5-5.1); SGOT/AST 14 U/L (15-37); SGPT/ALT 24 U/L (13-61); SODIUM 142 mmol/L (136-145); TOT PROT 6.8 g/dl (6.4-8.2)
[2018-12-23 09:13] LABS: ACTIVATED PTT 33.1 SECONDS (25.2-36.5)
[2018-12-23] MEDS: predniSONE 20 MG TABLET (UD) PO SCH (09:59)
[2018-12-23] MEDS ORDERED: predniSONE 5 MG TABLET (UD) PO SCH (10:00)
[2018-12-23] MEDS: LORATADINE 10 MG TABLET PO SCH (10:00)
[2018-12-23] MEDS: HEPARIN NA (PORCINE) 5,000 UNITS/ML 1ML VIAL SQ SCH ×2 (10:02→22:24)
--- NOTE | 2018-12-23 12:05 | EKG ---
Test Reason : Blood Pressure : / mmHG Vent. Rate : 060 BPM Atrial Rate : 060 BPM P-R Int : 138 ms QRS Dur : 090 ms QT Int : 390 ms P-R-T Axes : 055 043 048 degrees QTc Int : 390 ms NORMAL SINUS RHYTHM WITH SINUS ARRHYTHMIA NONSPECIFIC ST ABNORMALITY ABNORMAL ECG WHEN COMPARED WITH ECG OF 22-DEC-2018 11:27, NO SIGNIFICANT CHANGE WAS FOUND Confirmed by RAO VIRK MD ([id number]) on 12/23/2018 12:05:19 PM Referred By: Confirmed By:RAO VIRK MD
--- NOTE | 2018-12-23 15:39 | PN ---
Progress Note (short form) - Note Progress Note: continues to have stridor assoc with SOB. also has sensation of lump on the chest wall. denies CP, SOB, fever, chills, N/v/C/D Current Medications Generic Name Dose Route Start Last Admin Trade Name Freq PRN Reason Stop Dose Admin Acetaminophen 650 mg 12/22/18 19:34 Tylenol - PO Q6H PRN PAIN LEVEL 4 - 6 Albuterol/Ipratropium 1 amp 12/22/18 19:32 12/23/18 08:14 Duoneb - NEB 1 amp Q6H PRN Administration SHORTNESS OF BREATH Docusate Sodium 100 mg 12/22/18 19:32 Colace - PO BID PRN CONSTIPATION Heparin Sodium (Porcine) 5,000 unit 12/22/18 22:00 12/23/18 10:02 Heparin - SQ Not Given BID NICOLASA Loratadine 10 mg 12/23/18 10:00 12/23/18 10:00 Claritin - PO 10 mg DAILY NICOLASA Administration Prednisone 20 mg 12/23/18 10:00 12/23/18 09:59 Deltasone - PO 20 mg DAILY NICOLASA Administration Senna 2 tab 12/22/18 19:32 Senna - PO HS PRN CONSTIPATION Last Vital Signs Temp Pulse Resp BP Pulse Ox 98.5 F 74 20 138/90 97 12/23/18 10:00 12/23/18 10:00 12/23/18 10:00 12/23/18 10:00 12/23/18 09:00 General NAD, no tripoding, no drooling HEENT +stridor no LN CV S1 S2 RRR no murmur/rub/gallop Lungs CTA B/L no wheezing/rales/rhonchi Abdomen soft NT/ND CBCD WBC 10.5 K/mm3 (4.0-10.0) H 12/23/18 07:40 RBC 4.22 M/mm3 (4.00-5.60) 12/23/18 07:40 Hgb 14.1 GM/dL (11.7-16.9) 12/23/18 07:40 Hct 40.8 % (35.4-49) 12/23/18 07:40 MCV 96.5 fl (80-96) H 12/23/18 07:40 MCHC 34.5 g/dl (32.0-35.9) 12/23/18 07:40 RDW 13.4 % (11.9-15.9) 12/23/18 07:40 Plt Count 276 K/MM3 (134-434) 12/23/18 07:40 MPV 8.7 fl (7.5-11.1) 12/23/18 07:40 CMP Sodium 142 mmol/L (136-145) 12/23/18 07:40 Potassium 4.3 mmol/L (3.5-5.1) 12/23/18 07:40 Chloride 106 mmol/L (98-107) 12/23/18 07:40 Carbon Dioxide 30 mmol/L (21-32) 12/23/18 07:40 Anion Gap 6 MMOL/L (8-16) L 12/23/18 07:40 BUN 18 mg/dL (7-18) 12/23/18 07:40 Creatinine 1.0 mg/dL (0.55-1.3) 12/23/18 07:40 Creat Clearance w eGFR 83.63 (>60) 12/23/18 07:40 Calcium 9.0 mg/dL (8.5-10.1) 12/23/18 07:40 Total Bilirubin 0.6 mg/dL (0.2-1) 12/23/18 07:40 AST 14 U/L (15-37) L 12/23/18 07:40 ALT 24 U/L (13-61) 12/23/18 07:40 Alkaline Phosphatase 80 U/L (45-117) 12/23/18 07:40 Total Protein 6.8 g/dl (6.4-8.2) 12/23/18 07:40 Albumin 3.6 g/dl (3.4-5.0) 12/23/18 07:40 A/P 38yo M with no PMH presenting with progressively worsening stridor now assoc with SOB 1. Stridor- B/L vocal cord paresis due to viral infection vs neurological disease with concern for phrenic nerve injury. Seen by ENT with laryngoscopy done showing left deviated septum. Right nasal cavity and nasopharynx are normal. Hypopharynx is normal. Retrodisplaced epiglottis. No laryngeal masses. Right true vocal cord is severely paretic, with 2 mm of abduction on inspiration. Left true vocal cord is immobile and midline. on prednsione CT and echo normal. 2. leukocytosis- due to steroid. doubt infectious as was normal on presentation. will hold abx 3. DVT ppx- hep sq Visit type - Emergency Visit Emergency Visit: Yes ED Registration Date: 12/22/18 Care time: The patient presented to the Emergency Department on the above date and was hospitalized for further evaluation of their emergent condition. - New Patient This patient is new to me today: Yes Date on this admission: 12/23/18 - Critical Care Critical Care patient: No - Discharge Referral Referred to [facility] Med P.C.: No
[2018-12-24] MEDS: HEPARIN NA (PORCINE) 5,000 UNITS/ML 1ML VIAL SQ SCH ×3 (10:23→21:29)
[2018-12-24] MEDS: LORATADINE 10 MG TABLET PO SCH (10:23)
[2018-12-24] MEDS: predniSONE 20 MG TABLET (UD) PO SCH (10:24)
--- NOTE | 2018-12-24 12:45 | DS ---
Physical Exam: SUBJECTIVE: Patient seen and examined OBJECTIVE: Vital Signs Period Temp Pulse Resp BP Sys/Mccoy Pulse Ox Last 24 Hr 97.8 F-98.7 F 59-65 18-22 130-136/74-78 97-97 PHYSICAL EXAM GENERAL: The patient is awake, alert, and fully oriented, in no acute distress. HEAD: Normal with no signs of trauma. EYES: PERRL, extraocular movements intact, sclera anicteric, conjunctiva clear. ENT: Ears normal, nares patent, oropharynx clear without exudates, moist mucous membranes. NECK: Trachea midline, full range of motion, supple. LUNGS: Breath sounds equal, clear to auscultation bilaterally, no wheezes, no crackles, no accessory muscle use. HEART: Regular rate and rhythm, S1, S2 without murmur, rub or gallop. ABDOMEN: Soft, nontender, nondistended, normoactive bowel sounds, no guarding, no rebound, no hepatosplenomegaly, no masses. EXTREMITIES: 2+ pulses, warm, well-perfused, no edema. NEUROLOGICAL: Cranial nerves II through XII grossly intact. Normal speech, gait not observed. PSYCH: Normal mood, normal affect. SKIN: Warm, dry, normal turgor, no rashes or lesions noted. LABS HOSPITAL COURSE: Date of Admission:12/22/18 Date of Discharge: 12/24/18 Admitting diagnosis; Pre hospital course 38 year old M with no past medical history presents to ED for evaluation of SOB. Mr. Friedman reports mild difficulty swallowing two days ago which progressed to mild dyspnea at rest and with activity. He denies fever/chills/N/V /ALCALA/D,palpitations, edema or weight gain. No recent sick contacts or recent travel. Jw endorses mild left sided chest pain and wheezing. He smokes 1/ 2PPD and stopped two days ago when his symptoms began. Pt reports similar episode last May 2018, in the setting of PNA; and was treated with nebs, streoids and Abx. In ED Vitals were: BP 114/75, HR 63, T 98, RR 18, O2 sat 98 ENT consulted for what appeared to be sx of stridor. EKG: VR 56bpm, AILYN 128ms, QRS 86ms, QT/QTc 404/389ms. J-point elevation V2-6. CT chest no acute findings CT neck: nor narrowing of the airway. Pt admitted for further evaluation as scope by ENT demonstrated decreased mobility of the vocal chords with inspiration. Subsequent hospital course Minutes to complete discharge: 40 Discharge Summary Reason For Visit: INSPIRATORY STRIDOR Current Active Problems Inspiratory stridor (Acute) Prophylactic measure (Acute) Condition: Improved - Instructions Diet, Activity, Other Instructions: You were observed in the hospital due to the stridor that you are experiencing. Follow up with ENT specialist, Dr Doherty, at the beginning of next week to evaluate your symptoms and continue with the next step. You have also been given a referral to neurology and pulmonary that you will need to see. If your breathing becomes more difficult, have difficult controlling your saliva or have sensation your throat is closing return to the hospital immediately. Referrals: Jason Moura MD [Staff Physician] - Tj Avina DO [Staff Physician] - Te Doherty MD [Staff Physician] - Disposition: HOME - Home Medications Comprehensive Discharge Medication List: Ambulatory Orders predniSONE [Deltasone -] 20 mg PO DAILY #14 tablet 12/24/18 - Discharge Referral Referred to [facility] No
--- NOTE | 2018-12-24 13:51 | CON.PULM ---
Consult Consult Specialty:: PULMONARY Referred by:: JENS Reason for Consultation:: STRIDOR - History of Present Illness Chief Complaint: DIFFICULTY BREATHING History of Present Illness: 38 AA MALE FORMER SMOKER/NO SIGNIFICANT MEDICAL HX. S/P HERNIA REPAIR/DOES NOT TAKE ANY MEDS' PRESENTS WITH STRIDOR AND DIFFICULTY BREATHING ON DAY OF ADMISSION. PATIENT STATES HE WAS OUT IN THE RAIN 2 DAYS PRIOR AND FEELS THAT MAY HAVE CONTIBUTED. HE STATES HE HAD A SIMILAR EPISODE IN THE PAST BUT NOT AT THAT TIME HE WAS TOLD HE HAD "WALKING PNEUMONIA". - History Source History Provided By: Patient, Medical Record Limitations to Obtaining History: No Limitations - Past Medical History LABORATORY MONITOR: No: Alzheimer's Cardio/Vascular: No: AFIB Pulmonary: No: Asthma Gastrointestinal: No: Ascites Hepatobiliary: No: Cirrhosis Renal/: No: Renal Failure Heme/Onc: No: Anemia Psych: No: Addictions - Past Surgical History Past Surgical History: Yes: Hernia Repair - Alcohol/Substance Use Hx Alcohol Use: No History of Substance Use: reports: None - Smoking History Smoking history: Current every day smoker Have you smoked in the past 12 months: Yes Aproximately how many cigarettes per day: 7 If you are a former smoker, when did you quit?: 12/20/18 - Social History ADL: Independent 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 Place of : [facility] History of Recent Travel: No Home Medications - Allergies Allergies/Adverse Reactions: Allergies Allergy/AdvReac Type Severity Reaction Status Date / Time No Known Allergies Allergy Verified 12/22/18 08:38 - Home Medications Home Medications: Ambulatory Orders predniSONE [Deltasone -] 20 mg PO DAILY #14 tablet 12/24/18 Family Disease History - Family Disease History Family Disease History: Other: Grandparent (alive (90) DMII), Father (alive (60 ) DMII), Mother (alive (65) OA), Brother (alive(44) healthy), Sister (alive (20 ) well) Review of Systems - Review of Systems Constitutional: denies: Fever Eyes: denies: Blurred Vision HENT: denies: Ear Discharge Neck: denies: Lumps Cardiovascular: denies: Edema Respiratory: reports: Snoring. denies: Exercise Intolerance Gastrointestinal: denies: Bloating Genitourinary: denies: Discharge Musculoskeletal: denies: Back Pain Physical Exam Vital Sings: Vital Signs Temperature 98.4 F 12/24/18 10:00 Pulse Rate 61 12/24/18 10:00 Respiratory Rate 18 12/24/18 10:00 Blood Pressure 130/74 12/24/18 10:00 O2 Sat by Pulse Oximetry (%) 97 12/24/18 09:00 Constitutional: Yes: Calm Eyes: Yes: EOM Intact HENT: Yes: Normocephalic, Tonsillar Exudate Cardiovascular: Yes: Regular Rate and Rhythm, S1, S2 Respiratory: Yes: CTA Bilaterally Gastrointestinal: Yes: Normal Bowel Sounds Renal/: Yes: WNL Breast(s): Yes: WNL Musculoskeletal: Yes: WNL Extremities: Yes: WNL Edema: No Labs: CBC, BMP 12/23/18 07:40 12/23/18 07:40 ABG Results ABG pH 7.38 (7.35-7.45) 12/22/18 13:04 ABG pCO2 at Pt Temp 47.8 mmHg (35-45) H 12/22/18 13:04 ABG pO2 at Pt Temp 87.8 mmHg (80-105) 12/22/18 13:04 ABG HCO3 27.3 mmol/L (22-27) H 12/22/18 13:04 ABG O2 Sat (Measured) 96.7 % (95-98) 12/22/18 13:04 ABG O2 Content 20.2 % vol (15-22) 12/22/18 13:04 ABG Base Excess 1.9 meq/l (-2-2) 12/22/18 13:04 Imaging - Results Chest X-ray: Report Reviewed, Image Reviewed X-ray: Report Reviewed, Image Reviewed Cat Scan: Report Reviewed, Image Reviewed Problem List - Problems (1) Vocal cord paralysis Code(s): J38.00 - PARALYSIS OF VOCAL CORDS AND LARYNX, UNSPECIFIED (2) Inspiratory stridor Code(s): R06.1 - STRIDOR Assessment/Plan WOULD CONTINUE TO OBSERVE OVER WEEKEND ON IV MEDROL OBTAIN NEURO EVAL 02 DES MORGAN MD
[2018-12-24] MEDS ORDERED: methylPREDNISolone NA SUCC 40 MG/1 ML VIAL IVPUSH SCH (14:00)
[2018-12-24] MEDS: methylPREDNISolone NA SUCC 40 MG/1 ML VIAL IVPUSH SCH ×2 (15:46→17:47)
[2018-12-24] MEDS: PANTOPRAZOLE 20 MG TABLET (FP) PO SCH (15:47)
--- NOTE | 2018-12-24 17:31 | PN ---
Progress Note (short form) - Note Progress Note: continues to have stridor assoc with SOB. denies CP, SOB, fever, chills, N/v/C/D Current Medications Generic Name Dose Route Start Last Admin Trade Name Freq PRN Reason Stop Dose Admin Acetaminophen 650 mg 12/22/18 19:34 Tylenol - PO Q6H PRN PAIN LEVEL 4 - 6 Albuterol/Ipratropium 1 amp 12/22/18 19:32 12/23/18 08:14 Duoneb - NEB 1 amp Q6H PRN Administration SHORTNESS OF BREATH Docusate Sodium 100 mg 12/22/18 19:32 Colace - PO BID PRN CONSTIPATION Heparin Sodium (Porcine) 5,000 unit 12/22/18 22:00 12/24/18 10:23 Heparin - SQ Not Given BID NICOLASA Loratadine 10 mg 12/23/18 10:00 12/24/18 10:23 Claritin - PO Not Given DAILY NICOLASA Methylprednisolone Sodium Succinate 20 mg 12/24/18 14:00 12/24/18 15:46 Solu-Medrol - IVPUSH 20 mg Q8H-IV NICOLASA Administration Pantoprazole Sodium 20 mg 12/24/18 14:00 12/24/18 15:47 Protonix - PO 20 mg DAILY NICOLASA Administration Senna 2 tab 12/22/18 19:32 Senna - PO HS PRN CONSTIPATION Last Vital Signs Temp Pulse Resp BP Pulse Ox 97.5 F L 67 20 122/82 97 12/24/18 14:00 12/24/18 14:00 12/24/18 14:00 12/24/18 14:00 12/24/18 09:00 General NAD,rsting comfortable. HEENT +stridor CV S1 S2 RRR no murmur/rub/gallop Lungs CTA B/L no wheezing/rales/rhonchi Abdomen soft NT/ND A/P 38yo M with no PMH presenting with progressively worsening stridor now assoc with SOB 1. 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 spoke with ENT, recommends pulm and neuro eval. althought patient appears to be resting comfortable, has high probability of respiratory compromise. on prednisone. awaiting on MRI. prednsione CT and echo normal. 2. leukocytosis- due to steroid. doubt infectious as was normal on presentation. will hold abx 3. DVT ppx- hep sq Visit type - Emergency Visit Emergency Visit: Yes ED Registration Date: 12/22/18 Care time: The patient presented to the Emergency Department on the above date and was hospitalized for further evaluation of their emergent condition. - New Patient This patient is new to me today: No - Critical Care Critical Care patient: No - Discharge Referral Referred to [facility] Med [facility]C.: No
[2018-12-25] MEDS: methylPREDNISolone NA SUCC 40 MG/1 ML VIAL IVPUSH SCH ×2 (01:51→09:33)
[2018-12-25 08:13] VITALS: TEMP 98
[2018-12-25] MEDS: LORATADINE 10 MG TABLET PO SCH (09:33)
[2018-12-25] MEDS: PANTOPRAZOLE 20 MG TABLET (FP) PO SCH (09:33)
[2018-12-25] MEDS: HEPARIN NA (PORCINE) 5,000 UNITS/ML 1ML VIAL SQ SCH (09:33)
--- NOTE | 2018-12-25 10:34 | PN ---
Physical Exam: SUBJECTIVE: Patient seen and examined He has no symptoms he is on solumderol and seen by pulmonary OBJECTIVE: Vital Signs Period Temp Pulse Resp BP Sys/Mccoy Pulse Ox Last 24 Hr 97.5 F-99.8 F 53-68 16-21 110-144/65-85 97 General NAD,rsting comfortable. 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 Active Medications Generic Name Dose Route Start Last Admin Trade Name Freq PRN Reason Stop Dose Admin Acetaminophen 650 mg 12/22/18 19:34 Tylenol - PO Q6H PRN PAIN LEVEL 4 - 6 Albuterol/Ipratropium 1 amp 12/22/18 19:32 12/23/18 08:14 Duoneb - NEB 1 amp Q6H PRN Administration SHORTNESS OF BREATH Docusate Sodium 100 mg 12/22/18 19:32 Colace - PO BID PRN CONSTIPATION Heparin Sodium (Porcine) 5,000 unit 12/22/18 22:00 12/25/18 09:33 Heparin - SQ Not Given BID NICOLASA Loratadine 10 mg 12/23/18 10:00 12/25/18 09:33 Claritin - PO 10 mg DAILY NICOLASA Administration Methylprednisolone Sodium Succinate 20 mg 12/24/18 14:00 12/25/18 09:33 Solu-Medrol - IVPUSH 20 mg Q8H-IV NICOLASA Administration Pantoprazole Sodium 20 mg 12/24/18 14:00 12/25/18 09:33 Protonix - PO 20 mg DAILY NICOLASA Administration Senna 2 tab 12/22/18 19:32 Senna - PO HS PRN CONSTIPATION ASSESSMENT/PLAN: A/P 38yo M with no PMH presenting with progressively worsening stridor now assoc with SOB 1. 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 spoke with ENT, recommends pulm and neuro eval. althought patient appears to be resting comfortable, has high probability of respiratory compromise. on prednisone. Brain MRI no pathology noted. awaiting neuro eval and will continue steroids 2. leukocytosis- due to steroid. doubt infectious as was normal on presentation. will hold abx 3. DVT ppx- hep sq Addemdum Pt at 4-30 pm Pt wants to signed out ama discussed with him risks and he refuses to stay He said he will f/u with his pmd and ent Visit type - Emergency Visit Emergency Visit: Yes ED Registration Date: 12/24/18 Care time: The patient presented to the Emergency Department on the above date and was hospitalized for further evaluation of their emergent condition. - New Patient This patient is new to me today: Yes Date on this admission: 12/25/18 - Critical Care Critical Care patient: No - Discharge Referral Referred to [facility] Med P.C.: No
--- NOTE | 2018-12-25 12:25 | PN ---
Progress Note (short form) - Note Progress Note: Reports breathing feels better than on admission. Less SOB but no real subjective change in stridor from yesterday. Intake & Output 12/22/18 12/23/18 12/24/18 12/25/18 23:59 23:59 23:59 23:59 Intake Total 400 1500 1200 360 Balance 400 1500 1200 360 Weight 180 lb Last Vital Signs Temp Pulse Resp BP Pulse Ox 98.0 F 68 16 110/70 97 12/25/18 08:13 12/25/18 08:13 12/25/18 08:13 12/25/18 08:13 12/25/18 09:00 Active Medications Acetaminophen (Tylenol -) 650 mg PO Q6H PRN PRN Reason: PAIN LEVEL 4 - 6 Albuterol/Ipratropium (Duoneb -) 1 amp NEB Q6H PRN PRN Reason: SHORTNESS OF BREATH Last Admin: 12/23/18 08:14 Dose: 1 amp Docusate Sodium (Colace -) 100 mg PO BID PRN PRN Reason: CONSTIPATION Heparin Sodium (Porcine) (Heparin -) 5,000 unit SQ BID [facility] Last Admin: 12/25/18 09:33 Dose: Not Given Loratadine (Claritin -) 10 mg PO DAILY [facility] Last Admin: 12/25/18 09:33 Dose: 10 mg Methylprednisolone Sodium Succinate (Solu-Medrol -) 20 mg IVPUSH Q8H-IV [facility] Last Admin: 12/25/18 09:33 Dose: 20 mg Pantoprazole Sodium (Protonix -) 20 mg PO DAILY [facility] Last Admin: 12/25/18 09:33 Dose: 20 mg Senna (Senna -) 2 tab PO HS PRN PRN Reason: CONSTIPATION Constitutional: Yes: NAD Eyes: Yes: EOM Intact HENT: Yes: (+) Stridor Cardiovascular: Yes: Regular Rate and Rhythm, S1, S2 Respiratory: Yes: CTA Bilaterally Gastrointestinal: Yes: Normal Bowel Sounds Renal/: Yes: WNL Breast(s): Yes: WNL Musculoskeletal: Yes: WNL Extremities: Yes: WNL Edema: No Labs: Problem List - Problems (1) Vocal cord paralysis Code(s): J38.00 - PARALYSIS OF VOCAL CORDS AND LARYNX, UNSPECIFIED (2) Inspiratory stridor Code(s): R06.1 - STRIDOR Assessment/Plan Check MRI results Neuro evaluation has been called Steroids: Change to decadron O2 as needed but humidify Dr Brand
[2018-12-25] MEDS ORDERED: DEXAMETHASONE SOD PHOSPHATE 10 MG/1 ML VIAL IVPUSH SCH (12:30)
[2018-12-25 14:18] VITALS: BP 151/67; PULSE 77
--- NOTE | 2018-12-25 16:36 | DS ---
Physical Exam: SUBJECTIVE: Patient seen and examined 38yo M with no PMH presenting with progressively worsening stridor now assoc with SOB 1. 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 spoke with ENT, recommends pulm and neuro eval. althought . Brain MRI no pathology noted. OBJECTIVE: Vital Signs Period Temp Pulse Resp BP Sys/Mccoy Pulse Ox Last 24 Hr 98.0 F-99.8 F 53-77 16-21 110-151/65-85 97-97 PHYSICAL EXAM GENERAL: The patient is awake, alert, and fully oriented, in no acute distress. HEAD: Normal with no signs of trauma. EYES: PERRL, extraocular movements intact, sclera anicteric, conjunctiva clear. ENT: Ears normal, nares patent, oropharynx clear without exudates, moist mucous membranes. NECK: Trachea midline, full range of motion, supple. LUNGS: Breath sounds equal, clear to auscultation bilaterally, no wheezes, no crackles, no accessory muscle use. HEART: Regular rate and rhythm, S1, S2 without murmur, rub or gallop. ABDOMEN: Soft, nontender, nondistended, normoactive bowel sounds, no guarding, no rebound, no hepatosplenomegaly, no masses. EXTREMITIES: 2+ pulses, warm, well-perfused, no edema. NEUROLOGICAL: Cranial nerves II through XII grossly intact. Normal speech, gait not observed. PSYCH: Normal mood, normal affect. SKIN: Warm, dry, normal turgor, no rashes or lesions noted. LABS HOSPITAL COURSE: pt has mri of brain done and seen by pulmonary and ent he has been symptom free in hospital and he signed out AMA Date of Admission:12/24/18 Date of Discharge: 12/25/18 Minutes to complete discharge: 30 Discharge Summary Reason For Visit: INSPIRATORY STRIDOR Current Active Problems Inspiratory stridor (Acute) Prophylactic measure (Acute) Vocal cord paralysis (Acute) Condition: Improved - Instructions Diet, Activity, Other Instructions: You were observed in the hospital due to the stridor that you are experiencing. If your breathing becomes more difficult, have difficult controlling your saliva or have sensation your throat is closing return to the hospital immediately. Referrals: Jason Moura MD [Staff Physician] - Te Doherty MD [Staff Physician] - - Home Medications Comprehensive Discharge Medication List: Ambulatory Orders predniSONE [Deltasone -] 20 mg PO DAILY #14 tablet 12/24/18 This patient is new to me today: Yes Date on this admission: 12/25/18 Emergency Visit: Yes ED Registration Date: 12/24/18 Care time: The patient presented to the Emergency Department on the above date and was hospitalized for further evaluation of their emergent condition. Critical Care patient: No - Discharge Referral Referred to [facility] Med P.C.: No
== END 2018-12-25 16:30 | disposition left against medical advice (07) | DRG 115 ==
LOC: JERFT 08:25 → JER 08:25 → JERBED 11:17 → J6S 16:14 → OBSVTOIN 12-24 17:41
PROVIDERS: ATTEND Internal Medicine
PROC: 0CJS8ZZ Inspection of Larynx, Via Natural or Artificial Opening Endoscopic (ICD-10-PCS; principal; 2018-12-23)
DX: J38.02 Paralysis of vocal cords and larynx, bilateral (principal); F17.210 Nicotine dependence, cigarettes, uncomplicated; J98.8 Other specified respiratory disorders; D72.829 Elevated white blood cell count, unspecified; J34.2 Deviated nasal septum; Z29.9 Encounter for prophylactic measures, unspecified
CPT/HCPCS: 36415; 36600; 70491-TC; 70553-TC; 71045-TC-FY; 71260-TC; 80053; 82550; 82553; 82803; 83735; 84100; 84443; 84484; 85025; 85610; 85730; 87633; 93005; 93010; 93306-TC; 94640; 99283-25; G0378; J1100; J1644

== ENCOUNTER 2019-07-27 10:58 | Inpatient (IN) | payer OTHER ==
[2019-07-27 11:05] VITALS: BMI 26.6
[2019-07-27] MEDS ORDERED: DEXAMETHASONE LIQUID 0.5 MG/5 ML PO ONE (11:26)
[2019-07-27] MEDS ORDERED: DEXAMETHASONE SOD PHOSPHATE 10 MG/1 ML VIAL ONE (11:28)
[2019-07-27] MEDS ORDERED: ALBUTEROL SO4 2.5/IPRATROPIUM 0.5 INH SOL 3 ML VIAL.NEB. NEB ONE (11:28)
[2019-07-27] MEDS: ALBUTEROL SO4 2.5/IPRATROPIUM 0.5 INH SOL 3 ML VIAL.NEB. NEB SCH ×4 (11:32→12:15)
--- NOTE | 2019-07-27 12:08 | PDOC ---
History of Present Illness - General Chief Complaint: Cold Symptoms Stated Complaint: cough, cold symptoms Time Seen by Provider: 07/27/19 11:05 - History of Present Illness Initial Comments: 07/27/19 12:07 39-year-old fully vaccinated male without comorbidities presents for evaluation of cough and shortness of breath x1 day without systemic symptoms Past History - Past Medical History Allergies/Adverse Reactions: Allergies Allergy/AdvReac Type Severity Reaction Status Date / Time No Known Allergies Allergy Verified 07/27/19 11:05 Home Medications: Ambulatory Orders predniSONE [Deltasone -] 20 mg PO DAILY #14 tablet 12/24/18 COPD: No - Surgical History Abdominal Surgery: Yes (hernia repair) - Immunization History Immunization Up to Date: Yes - Psycho Social/Smoking Cessation Hx Smoking History: Current every day smoker Have you smoked in the past 12 months: Yes Number of Cigarettes Smoked Daily: 10 If you are a former smoker, when did you quit?: 12/20/18 Information on smoking cessation initiated: Yes Hx Alcohol Use: No Drug/Substance Use Hx: No Substance Use Type: None Hx Substance Use Treatment: No Review of Systems - Review of Systems Constitutional: No: Fever Respiratory: Yes: Cough, SOB at Rest, Stridor *Physical Exam - Vital Signs Last Vital Signs Temp Pulse Resp BP Pulse Ox 99 F 88 19 116/67 97 07/27/19 11:03 07/27/19 11:03 07/27/19 11:03 07/27/19 11:03 07/27/19 11:03 - Physical Exam Comments: 07/27/19 12:07 GENERAL: The patient is awake, alert, and fully oriented, in no acute distress. HEAD: Normal with no signs of trauma. EYES: sclera anicteric, conjunctiva clear. ENT: Ears normal NECK: Normal range of motion LUNGS: Decreased breath sounds bilaterally with left basilar rhonchi severe inspiratory stridor. HEART: S1 and S2 without murmur, rub or gallop. ABDOMEN: Soft, nontender, normoactive bowel sounds. No guarding, no rebound. No masses. EXTREMITIES: Normal range of motion, no edema. No clubbing or cyanosis. No cords, erythema, or tenderness. NEUROLOGICAL: Cranial nerves II through XII grossly intact. Normal speech, normal gait. PSYCH: Normal mood, normal affect. SKIN: Warm, Dry, normal turgor, no rashes or lesions noted. ED Treatment Course - RADIOLOGY Radiology Studies Ordered: Category Date Time Status CHEST PA & LAT [RAD] Stat Radiology 07/27/19 11:26 Completed NECK SOFT TISSUE [RAD] Stat Radiology 07/27/19 11:40 Ordered - Medications Given in the ED: ED Medications Discontinued Medications Generic Name Dose Route Start Last Admin Trade Name Freq PRN Reason Stop Dose Admin Dexamethasone 10 mg 07/27/19 11:26 07/27/19 11:32 Decadron Liquid - PO 07/27/19 11:27 10 mg ONCE ONE Administration Medical Decision Making - Medical Decision Making 07/27/19 12:07 No discrete infiltrate on chest radiograph. Patient was ordered for duo nebs and Decadron as well as influenza swab. Discussed this case with emergency room attending we will move this patient over to the main emergency room he is an airway concern at this point Discharge - Discharge Information Problems reviewed: Yes Clinical Impression/Diagnosis: Inspiratory stridor Condition: Guarded - Follow up/Referral - Patient Discharge Instructions - Post Discharge Activity
[2019-07-27] MEDS ORDERED: SODIUM CHLORIDE FOR INHALATION 3 ML VIAL.NEB IH PRN (12:38)
[2019-07-27] MEDS ORDERED: RACEPINEPHRINE IH SOL 2.25% 11.25 MG/0.5 ML VIAL IH ONE ×2 (12:39→13:39)
--- NOTE | 2019-07-27 12:43 | PDOC ---
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 Patient states that he has had this issue with stridor his whole life they have not found a cause states that he did follow-up with ENT who states they never figured out exactly why he has this. 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 - Physicial Exam PE: 07/27/19 12:41 Patient is awake alert has bilateral boggy nasal mucosa. TMs are clear bilaterally. Evaluation of the pharynx shows uvula which is midline no edema noted does have some posterior cobblestoning and increased mucus does have noted stridor which is lessened with relaxed effort on breathing. Lungs are clear bilaterally except for transmitted upper airway noise there is no crackles no wheezes appreciated normal effort no retractions heart is regular 30 murmurs rubs or gallops abdomen soft nontender tremors are warm well perfused skin is warm and dry no rash noted neurologic patient is awake alert and oriented x3 - Medical Decision Making 07/27/19 12:42 39-year-old male history of previous stridor here today with recurrent symptoms shortness of breath and stridor. Is stridorous on exam somewhat improved when his effort of breathing is relaxed. Plan Decadron DuoNeb will switch to racemic epi and humidified O2. Patient be given a muscle relaxer to improve if there is a spastic component will discuss with Dr. Aaron Kaufman patient may require an admission for observation due to severity of his symptoms on initial presentation. Chest x-ray and x-ray soft tissue the neck to rule out any epiglottitis or other infection flu swab was sent and is negative 07/27/19 14:29 pt stridor worsened despite racemic epe, steroids, and high flow oxygen, anxiolytic pt becamse lethargic worsenign stridor. anesthesia consulted to discuss awake nasotracheal intubation. after discussion and evaluation, pt intubated by anesthesia with 7.0 tube, RSI with paralytic, and propofol. given versed, and propofol drip for sedation. also given dose rocuronium following intubation to prevent pulling tube. post intubation CXR confirmed tube pacement. pt to be admitted to ICU d/w dr cordova. Heart Score/ECG Review #1 General ECG Interpretation: Sinus Rhythm, Normal Rate (61), Normal Intervals, No acute ischemic changes Compared to previous ECG there are: No significant change (comparison 12/23/18) Critical Care Time/MDM Note Total Critical Care Time: 60 Critical Care Statement: The care of this patient involved high complexity decision making to prevent further life threatening deterioration of the patient 's condition and/or to evaluate & treat vital organ system(s) failure or risk of failure. - Medical Decision Making Note: 07/27/19 14:33 pt intubated with anesthesia for difficult airway, given racemic, duoneb. steroids, and rsi. will admit to ICU. called pt mother with pt permission. left message awaiting call back.
[2019-07-27] MEDS ORDERED: LORazepam 2 MG/ML SDV VIAL ONE (12:46)
[2019-07-27] MEDS ORDERED: RACEPINEPHRINE IH SOL 2.25% 11.25 MG/0.5 ML VIAL NEB ONE ×2 (12:46→13:36)
[2019-07-27 12:58] LABS: BASO % 0.9 % (0-2.0); EOS % 0.5 % (0-4.5); HEMATOCRIT 38.3 % (35.4-49); HEMOGLOBIN 12.8 GM/dL (11.7-16.9); LYMPH % 13.3 % (8-40); MCH 32.1 pg (25.7-33.7); MCHC 33.5 g/dl (32.0-35.9); MEAN CELL VOLUME 95.8 fl (80-96); MEAN PLT VOLUME 9.1 fl (7.5-11.1); NEUT % 76.3 % (42.8-82.8); PLATELET COUNT 257 K/MM3 (134-434); RDW 13.1 % (11.9-15.9)
[2019-07-27 13:22] LABS: ALBUMIN 3.8 g/dl (3.4-5.0); BILIRUBIN,TOTAL 0.4 mg/dL (0.2-1); CALCIUM 8.8 mg/dL (8.5-10.1); CREATININE 1.1 mg/dL (0.55-1.3); POTASSIUM 3.6 mmol/L (3.5-5.1); TOT PROT 6.9 g/dl (6.4-8.2)
[2019-07-27] MEDS ORDERED: SUCCINYLCHOLINE CHLORIDE 200 MG/10 ML SYRINGE ONE (13:40)
[2019-07-27] MEDS ORDERED: PROPOFOL 20 ML ONE (13:43)
[2019-07-27 13:57] LABS: ARTERIAL BLD GAS O2 SATURATION 98.9 % (95-98); ARTERIAL BLOOD GAS BASE EXCESS 2.5 meq/l (-2-2); ARTERIAL BLOOD GAS PCO2 55.3 mmHg (35-45); ARTERIAL BLOOD GAS PO2 137 mmHg (80-100); ARTERIAL BLOOD GAS pH 7.34 (7.35-7.45); CARBOXYHEMOGLOBIN 1.6 % (0-2)
[2019-07-27] MEDS ORDERED: PROPOFOL 200 MG/20 ML VIAL IVPUSH ONE (14:01)
[2019-07-27] MEDS ORDERED: SUCCINYLCHOLINE CHLORIDE 200 MG/10 ML VIAL IVPUSH ONE (14:01)
[2019-07-27] MEDS ORDERED: ROCURONIUM BROMIDE 50 MG/5 ML VIAL IVPUSH ONE (14:01)
[2019-07-27] MEDS ORDERED: MIDAZOLAM HCL 2 MG/2 ML SINGLE DOSE VIAL ONE ×3 (14:03→20:05)
[2019-07-27] MEDS ORDERED: RAPID SEQUENCE INTUBATION KIT NR ONE (14:04)
[2019-07-27] MEDS ORDERED: ROCURONIUM BROMIDE 50 MG/5 ML VIAL IV ONE (14:07)
[2019-07-27] MEDS ORDERED: PROPOFOL 1,000,000 MCG/100 ML VIAL ONE ×2 (14:09→20:01)
[2019-07-27] MEDS ORDERED: MIDAZOLAM HCL 2 MG/2 ML SINGLE DOSE VIAL IVPUSH ONE ×2 (14:09→20:05)
--- NOTE | 2019-07-27 14:11 | PN ---
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 Soft tissue MRI from november, prior fiberoptic exam by Dr. Doherty revealed slightly narrowed glottis/postglottic opening but not significant. Pt has a likely URI, which is exacerbating his chronic condition. Received decadron IV, albuterol, and racemic epinephrine x 2, without significant improvement in stridor. There is no appreciable swelling of his airway or soft tissue. Pt is slightly sleepy, possibly due to hypercarbia from ineffective respirations vs recent ativan administration. He is to be transferrred to [facility] for further management, but needs to be emergently intubated prior to transfer, as he is in respiratory distress. Decision made to intubate pt with a smaller 7.0 ETT under direct laryngoscopy, with glidescope and FO backup. Pt was pre-oxygenated, given an unduction dose of 150mg propofol. Manual ventilation with ambubag is easy, so Estelita was given. Under DL, vocal cords were relaxed but in approximation to each other- ETT 7.0 passed without issue. Easy ventilation, CO2 confirmed. Advised Dr. Diamond to start sedation/muscle relaxation, to ensure pt does not self-extubate enroute to [facility]. VSS
[2019-07-27] MEDS: PROPOFOL 1,000,000 MCG/100 ML VIAL IVPB SCH ×2 (14:15→22:34)
--- NOTE | 2019-07-27 14:32 | PDOC ---
History of Present Illness - General Chief Complaint: Cold Symptoms Stated Complaint: cough, cold symptoms Time Seen by Provider: 07/27/19 11:05 History Source: Patient Exam Limitations: No Limitations - History of Present Illness Initial Comments: Pt is a 39 yo M, with PMH of b/l vocal cord paralysis and recurrent inspiratory stridor, is coming in with dry cough and SOB. 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 Pt states this is similar to his previous exacerbations, and he does not have any rescue breathing treatments or prescriptions in the past. Pt denies any fevers/chills, headache, vision changes, syncope, chest pain, palpitations, nausea/vomiting, abdominal pain, urinary symptoms, diarrhea/ constipation, or leg swelling. Pt was admitted in November for similar complaints, and was found to have b/l vocal cord paralysis by laryngoscopy (Dr. Carr, ENT). MRI and soft-tissue neck CT negative for neurologic or obstructive causes at that time. Allergies: NKDA PCP: Dr. Savi Stoddard Social: Pt smokes cigarettes daily. Pt denies any alcohol or drug use. Pt denies any recent travel or sick contacts. Surgical: no relevant history. Family: no relevant history. 07/27/19 15:20 Mother's phone number: [phone] -- attempted calls x3, left messages, no response 07/27/19 15:27 Past History - Travel Traveled outside of the country in the last 30 days: No Close contact w/someone who was outside of country & ill: No - Past Medical History Allergies/Adverse Reactions: Allergies Allergy/AdvReac Type Severity Reaction Status Date / Time No Known Allergies Allergy Verified 07/27/19 11:05 Home Medications: Ambulatory Orders predniSONE [Deltasone -] 20 mg PO DAILY #14 tablet 12/24/18 COPD: No - Surgical History Abdominal Surgery: Yes (hernia repair) - Immunization History Immunization Up to Date: Yes - Psycho Social/Smoking Cessation Hx Smoking History: Current every day smoker Have you smoked in the past 12 months: Yes Number of Cigarettes Smoked Daily: 10 If you are a former smoker, when did you quit?: 12/20/18 Information on smoking cessation initiated: Yes Hx Alcohol Use: No Drug/Substance Use Hx: No Substance Use Type: None Hx Substance Use Treatment: No Respiratory Specific PMHX - Complaint Specific PMHX Hx Airway Support: No Hx Intubation: No Hx Asthma: No Hx Smoking Exposure: Yes Hx Vaping: No Hx Allergic Rhinitis: No Hx Exposure to Respiratory Irritants: Yes Hx Bronchitis: No Hx Pneumonia: No Hx Pulmonary Embolus: No Hx TB (Tuberculosis): No Other Respiratory History: b/l vocal cord paralysis Review of Systems - Review of Systems Able to Perform ROS?: Yes Is the patient limited Cook Islander proficient: No Constitutional: Yes: Weight Stable. No: Chills, Diaphoresis, Fever, Loss of Appetite, Malaise, Weakness HEENTM: No: Recent change in vision, Nose Congestion, Throat Pain, Throat Swelling, Mouth Pain, Difficulty Swallowing, Mouth Swelling Respiratory: Yes: Shortness of Breath, SOB with Exertion, SOB at Rest, Stridor. No: Cough, Orthopnea, Wheezing, Productive cough, Hemoptysis Cardiac (ROS): Yes: Chest Tightness. No: Chest Pain, Edema, Irregular Heart Rate, Lightheadedness, Palpitations, Syncope ABD/GI: No: Constipated, Diarrhea, Nausea, Poor Appetite, Poor Fluid Intake, Vomiting : No: Burning, Dysuria, Frequency, Flank Pain, Hematuria, Pain, Urgency Musculoskeletal: No: Back Pain, Joint Pain, Muscle Pain, Muscle Weakness Integumentary: No: Change in Color, Rash Neurological: No: Headache, Numbness, Paresthesia, Weakness, Unsteady Gait, Ataxia, Dizziness Psychiatric: No: Sleep Pattern Change, Change in Appetite Endocrine: No: Increased Urine, Change in Weight Hematologic/Lymphatic: No: Anemia, Blood Clots, Easy Bleeding, Easy Bruising All Other Systems: Reviewed and Negative *Physical Exam - Vital Signs Last Vital Signs Temp Pulse Resp BP Pulse Ox 99 F 88 19 116/67 97 07/27/19 11:03 07/27/19 11:03 07/27/19 13:50 07/27/19 11:03 07/27/19 11:03 - Physical Exam Comments: Vitals stable, pt afebrile. Pt with audible inspiratory stridor, but can speak in short sentences. Normal body habitus. Pt alert and oriented x3. virtualization architect generally intact, muscular strength and sensation intact. No midline spinal tenderness, step-offs, or crepitus. Head normocephalic, atraumatic. Eyes PERRLA, EOMI. Oropharynx without erythema or exudates, no LAD b/l. No nasal congestion. Hearing intact. Clear heart sounds, S1/S2, no JVD, b/l pedal edema, or heart murmur. Transmitted upper airway noise with inspiratory stridor, using accessory muscle use. No abdominal or CVA tenderness to palpation, no rebound, no guarding. Abdomen soft, non-distended, and with normoactive bowel sounds. Skin without jaundice or rash. 07/27/19 15:27 07/27/19 15:30 ED Treatment Course - LABORATORY CBC & Chemistry Diagram: 07/27/19 12:43 07/27/19 12:43 - ADDITIONAL ORDERS Additional order review: Laboratory Results 07/27/19 07/27/19 13:39 12:43 Anticoagulation Therapy No Result Required. Puncture Site No Result Required. ABG pH 7.34 L ABG pCO2 at Pt Temp 55.3 H ABG pO2 at Pt Temp 137 H ABG HCO3 28.9 H ABG O2 Sat (Measured) 98.9 H ABG O2 Content 17.6 ABG Base Excess 2.5 H Ron Test No Result Required. Carboxyhemoglobin 1.6 Methemoglobin < 1.0 O2 Delivery Device No Result Required. Oxygen Flow Rate No Result Required. Vent Mode No Result Required. Vent Rate No Result Required. Mechanical Rate No Result Required. Pressure Support Vent No Result Required. Sodium 137 Potassium 3.6 Chloride 103 Carbon Dioxide 30 Anion Gap 3 L BUN 13.0 Creatinine 1.1 Est GFR (CKD-EPI)AfAm 97.49 Est GFR (CKD-EPI)NonAf 84.12 Random Glucose 120 H Calcium 8.8 Total Bilirubin 0.4 AST 20 ALT 32 Alkaline Phosphatase 102 Total Protein 6.9 Albumin 3.8 07/27/19 12:43 RBC 4.00 MCV 95.8 MCHC 33.5 RDW 13.1 MPV 9.1 Neutrophils % 76.3 Lymphocytes % 13.3 D Monocytes % 9.0 Eosinophils % 0.5 D Basophils % 0.9 - RADIOLOGY Radiology Studies Ordered: Category Date Time Status CHEST X-RAY PORTABLE* [RAD] Stat Radiology 07/27/19 13:56 Taken - Medications Given in the ED: ED Medications Discontinued Medications Generic Name Dose Route Start Last Admin Trade Name Freq PRN Reason Stop Dose Admin Albuterol/Ipratropium 1 amp 07/27/19 11:30 07/27/19 12:15 Duoneb - NEB 07/27/19 12:16 1 amp Q15M NICOLASA Administration Dexamethasone 10 mg 07/27/19 11:26 07/27/19 11:32 Decadron Liquid - PO 07/27/19 11:27 10 mg ONCE ONE Administration Epinephrine 1 vial 07/27/19 12:39 07/27/19 12:57 S-2 IH 07/27/19 12:40 1 vial ONCE ONE Administration Epinephrine 1 vial 07/27/19 13:39 07/27/19 13:45 S-2 IH 07/27/19 13:40 1 vial ONCE ONE Administration Lorazepam 1 mg 07/27/19 12:39 07/27/19 12:57 Ativan Injection - IVPUSH 07/27/19 12:40 1 mg ONCE ONE Administration Midazolam HCl 4 mg 07/27/19 14:09 07/27/19 14:15 Versed - IVPUSH 07/27/19 14:10 4 mg ONCE ONE Administration Propofol 150 mcg 07/27/19 14:01 07/27/19 14:15 Diprivan - IVPUSH 07/27/19 14:02 150 mcg ONCE ONE Administration Rocuronium [place] 50 mg 07/27/19 14:07 07/27/19 14:15 Zemuron - IV 07/27/19 14:08 50 mg ONCE ONE Administration Succinylcholine Chloride 122 mg 07/27/19 14:01 07/27/19 14:15 Quelicin - 1.5 mg/kg (122 mg) 07/27/19 14:02 122 mg IVPUSH Administration ONCE ONE Medical Decision Making - Critical Care Time Total Critical Care Time (minutes): 60 Critical Care Statement: The care of this patient involved high complexity decision making to prevent further life threatening deterioration of the patient 's condition and/or to evaluate & treat vital organ system(s) failure or risk of failure. - Medical Decision Making Pt was seen at bedside, also will be seen by attending Dr. Elise. Pt presenting with inspiratory stridor, likely 2/2 to exacerbation due to viral URI vs allergic/irritant stimuli. Previous work-up showed no neurologic or obstructive causes for the stridor. Will obtain ABG, basic labs, soft-tissue x- ray, rapid influenza. Provided duoneb, racemic epinephrine, 10 PO decadron, 1 mg ativan for improvement of stridor and dyspnea. Will continue to reassess pt and monitor for symptomatic improvement. ECG: NSR, minimal criteria for LVH, intervals WNL (Hr 61, Pr 122, QRS 84, QTc 380). No TWIs or significant ST segment changes. No significant changes from prior ECG (12/23/2018). 07/27/19 15:33 Pt did not improve after interventions, provided additional racemic epi neb (2 total); pt with worsening stridor Pt intubated by Anesthesiology (RSI: succ and propofol) on first attempt with no complications Pt required additional 50 mcg rocuronium, 8 mg IV versed (4 mg and 4 mg) for sedation Started propofol drip, increased incrementally to 30 Starting versed drip and will attempt to wean propofol Pt hemodynamically stable and will continue to monitor until pt goes to ICU Chest x-ray shows ET tube in place. Pt accepted to ICU (Dr. Aparicio) for ET weaning and possible evaluation for tracheostomy. Admitted to Dr. Munoz's team for Dr. Stoddard. 07/27/19 16:21 Discharge - Discharge Information Problems reviewed: Yes Clinical Impression/Diagnosis: Inspiratory stridor, Vocal cord paralysis, Endotracheally intubated Condition: Guarded - Admission Yes - Follow up/Referral - Patient Discharge Instructions - Post Discharge Activity
--- NOTE | 2019-07-27 15:19 | CONSULT ---
Consultation: REQUESTING PROVIDER: CONSULT REQUEST: We have been asked to medically evaluate this patient for airway management. HISTORY OF PRESENT ILLNESS: 39yo M with PMH notable for idiopathic inspiratory stridor since childhood ( Worked up November 2018 by ENT here at [facility]) presenting with cold symptoms and stridor. History limited as patient is now intubated and sedated in the ED. Patient was admitted in November for similar complaints, and was found to have b/l vocal cord paralysis and slightly narrowed glottis/postglottic opening by laryngoscopy (Dr. Carr, ENT). MRI and soft-tissue neck CT negative for neurologic or obstructive causes at that time. In the ED patient received duonebs, 10mg decadron, negative flu swab, racemic epi x2. Today, CXR was within normal limits. Anesthesiology called to the bedside for intubation - noted no swelling of the oropharynx. Patient has received: 150 Propofol (then drip at 5, increased to 10 during my evaluation), 122 Sux, 4 Versed x2, 50 Rocuronium, 1mg Ativan. Patient with tachycardia and spastic jerks, assisted with soft restraints, will require further sedation. REVIEW OF SYSTEMS: Patient intubated and sedated PHYSICAL EXAMINATION Vital Signs - 24 hr 07/27/19 07/27/19 07/27/19 11:03 13:19 13:50 Temperature 99 F Pulse Rate 88 Respiratory 19 14 19 Rate Blood Pressure 116/67 O2 Sat by Pulse 97 Oximetry (%) GENERAL: Intubated, sedated, in no acute distress. HEAD: Normal with no signs of trauma, intubated. EYES: Pupils equal, round and reactive to light, extraocular movements intact, sclera anicteric, conjunctiva clear. No lid lag. LUNGS: Intubated, on AC vent. Breath sounds equal, clear to auscultation bilaterally. No wheezes, and no crackles. No accessory muscle use. HEART: Regular rate and rhythm, normal S1 and S2 without murmur, rub or gallop. ABDOMEN: Soft, nontender, not distended, normoactive bowel sounds, no guarding, no rebound, no masses. MUSCULOSKELETAL: Normal range of motion at all joints. No bony deformities or tenderness. UPPER EXTREMITIES: 2+ pulses, warm, well-perfused. No cyanosis. No clubbing. Cap refill <2 seconds. No peripheral edema. LOWER EXTREMITIES: 2+ pulses, warm, well-perfused. No calf tenderness. No peripheral edema. NEUROLOGICAL: Intubated and sedated, spastic jerks until versed administered. SKIN: Warm, dry, normal turgor, no rashes or lesions noted. Laboratory Results - last 24 hr 07/27/19 07/27/19 07/27/19 11:34 12:43 12:43 WBC 15.0 H RBC 4.00 Hgb 12.8 Hct 38.3 MCV 95.8 MCH 32.1 MCHC 33.5 RDW 13.1 Plt Count 257 MPV 9.1 Absolute Neuts (auto) 11.4 H Neutrophils % 76.3 Lymphocytes % 13.3 D Monocytes % 9.0 Eosinophils % 0.5 D Basophils % 0.9 Nucleated RBC % 0 Anticoagulation Therapy Puncture Site ABG pH ABG pCO2 at Pt Temp ABG pO2 at Pt Temp ABG HCO3 ABG O2 Sat (Measured) ABG O2 Content ABG Base Excess Ron Test Carboxyhemoglobin Methemoglobin O2 Delivery Device Oxygen Flow Rate Vent Mode Vent Rate Mechanical Rate Pressure Support Vent Sodium 137 Potassium 3.6 Chloride 103 Carbon Dioxide 30 Anion Gap 3 L BUN 13.0 Creatinine 1.1 Est GFR (CKD-EPI)AfAm 97.49 Est GFR (CKD-EPI)NonAf 84.12 Random Glucose 120 H Calcium 8.8 Total Bilirubin 0.4 AST 20 ALT 32 Alkaline Phosphatase 102 Total Protein 6.9 Albumin 3.8 Influenza A (Rapid) Negative Influenza B (Rapid) Negative 07/27/19 13:39 WBC RBC Hgb Hct MCV MCH MCHC RDW Plt Count MPV Absolute Neuts (auto) Neutrophils % Lymphocytes % Monocytes % Eosinophils % Basophils % Nucleated RBC % Anticoagulation Therapy No Result Required. Puncture Site No Result Required. ABG pH 7.34 L ABG pCO2 at Pt Temp 55.3 H ABG pO2 at Pt Temp 137 H ABG HCO3 28.9 H ABG O2 Sat (Measured) 98.9 H ABG O2 Content 17.6 ABG Base Excess 2.5 H Ron Test No Result Required. Carboxyhemoglobin 1.6 Methemoglobin < 1.0 O2 Delivery Device No Result Required. Oxygen Flow Rate No Result Required. Vent Mode No Result Required. Vent Rate No Result Required. Mechanical Rate No Result Required. Pressure Support Vent No Result Required. Sodium Potassium Chloride Carbon Dioxide Anion Gap BUN Creatinine Est GFR (CKD-EPI)AfAm Est GFR (CKD-EPI)NonAf Random Glucose Calcium Total Bilirubin AST ALT Alkaline Phosphatase Total Protein Albumin Influenza A (Rapid) Influenza B (Rapid) Active Medications Generic Name Dose Route Start Last Admin Trade Name Freq PRN Reason Stop Dose Admin Propofol 1,000,000 mcg in 100 mls @ 2.449 mls/hr 07/27/19 14:15 07/27/19 14: 15 Diprivan - IVPB 5 mcg/kg/min TITR NICOLASA 2.449 mls/hr Administration Protocol 5 MCG/KG/MIN Sodium Chloride 3 ml 07/27/19 12:38 Normal Saline For Inhalation - IH Q6H PRN WHEEZING ASSESSMENT/PLAN: 39yo M with PMH notable for idiopathic inspiratory stridor since childhood ( worked up November 2018 by ENT here at [facility]) presenting with cold symptoms and stridor, concern for airway compromise, intubated and sedated in the ED. Likely URI exacerbating some underlying chronic condition. Will continue to monitor airway. #Neuro - Baseline A&Ox3 - Sedated with propofol ggt, currently at 30 up from 5 - Continue versed ggt #Pulm: Hx of idiopathic inspiratory stridor - Intubated 07/27 in the ED - Monitor O2 Sat maintain > 92% - ABG, adjust vent accordingly - s/p 10mg Decadron in ED - Duonebs - S/p 2x racemic epi in the ED - Humidified O2 - Influenza negative #CV: MIKEL - Maintain MAPs >65 - Trend vitals #Renal: MIKEL - Monitor I&Os - Maintenance IVF #ID: MIKEL - Monitor vitals for fever - Trend CBC, likely leukocytosis with steroid administration #GI: MIKEL -NPO while mechanically ventilated #PPX -SCDs #Dispo: -Pt Accepted to ICU -We will continue to follow the patient. -Thank you for this consultative opportunity. Visit type - Emergency Visit Emergency Visit: Yes Care time: The patient presented to the Emergency Department on the above date and was hospitalized for further evaluation of their emergent condition. - New Patient This patient is new to me today: Yes Date on this admission: 07/27/19 - Critical Care Critical Care patient: Yes Total Critical Care Time (in minutes): 36 Critical Care Statement: The care of this patient involved high complexity decision making to prevent further life threatening deterioration of the patient 's condition and/or to evaluate & treat vital organ system(s) failure or risk of failure. ATTENDING PHYSICIAN STATEMENT I saw and evaluated the patient. I reviewed the resident's note and discussed the case with the resident. I agree with the resident's findings and plan as documented. SUBJECTIVE: OBJECTIVE: ASSESSMENT AND PLAN:
[2019-07-27] MEDS ORDERED: MIDAZOLAM IN 0.9 % SOD.CHLORID 100 MG/100 ML PLAST..BAG IVPB SCH (15:30)
[2019-07-27] MEDS ORDERED: MIDAZOLAM IN 0.9 % SOD.CHLORID 1 MG/1 ML PLAST..BAG ONE (17:15)
--- NOTE | 2019-07-28 08:28 | HP ---
Admitting History and Physical - Primary Care Physician PCP: Roberto Munoz - Admission Chief Complaint: SHORTNESS OF BREATH RESPIRATORY DISTRESS History of Present Illness: 39-year-old male history of vocal cord abnormalities with one side with complete paresis in the other side with hemiparesis previously seen and admitted for work-up for stridor in November 2018 here today complaining of shortness of breath and worsening stridor. Patient states that he has had this issue with stridor his whole life they have not found a cause states that he did follow-up with ENT who states they never figured out exactly why he has this. 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 History of Recent Travel: No Home Medications - Allergies Allergies/Adverse Reactions: Allergies Allergy/AdvReac Type Severity Reaction Status Date / Time No Known Allergies Allergy Verified 07/27/19 11:05 - Home Medications Home Medications: Ambulatory Orders predniSONE [Deltasone -] 20 mg PO DAILY #14 tablet 12/24/18 Review of Systems - Review of Systems Constitutional: reports: Weakness Eyes: reports: No Symptoms HENT: reports: Other (STRIDOR) Cardiovascular: reports: No Symptoms Respiratory: reports: SOB, Wheezing, Other (STRIDOR) Gastrointestinal: reports: No Symptoms Genitourinary: reports: No Symptoms Neurological: reports: Seizure, Other (JERKY MOVEMENTS) Physical Examination Vital Signs: Vital Signs Temperature 98.7 F 07/28/19 03:00 Pulse Rate 91 H 07/28/19 05:00 Respiratory Rate 17 07/28/19 07:30 Blood Pressure 122/81 07/28/19 05:00 O2 Sat by Pulse Oximetry (%) 50 L 07/27/19 20:42 Constitutional: Yes: Mild Distress Cardiovascular: Yes: Regular Rate and Rhythm Respiratory: Yes: Diminished, Mechanically Ventilated Gastrointestinal: Yes: Soft Renal/: Yes: Incontinence Musculoskeletal: Yes: Other Edema: No Integumentary: Yes: WNL Wound/Incision: Yes: Clean/Dry Neurological: Yes: Other Labs: CBC, BMP 07/27/19 12:43 07/27/19 12:43 Imaging - Results Chest X-ray: Report Reviewed Problem List - Problems (1) Endotracheally intubated Code(s): Z97.8 - PRESENCE OF OTHER SPECIFIED DEVICES (2) Inspiratory stridor Code(s): R06.1 - STRIDOR (3) Vocal cord paralysis Code(s): J38.00 - PARALYSIS OF VOCAL CORDS AND LARYNX, UNSPECIFIED (4) Prophylactic measure Code(s): Z29.9 - ENCOUNTER FOR PROPHYLACTIC MEASURES, UNSPECIFIED (5) Shortness of breath Code(s): R06.02 - SHORTNESS OF BREATH (6) Muscle, jerky movements (uncontrolled) Code(s): G25.5 - OTHER CHOREA Assessment/Plan INTUBATED ALOOW AIRWAY TO STABILIZE D/W MOM BEDSIDE. STEROIDS IV GI AND DVT PROPHYLAXIS MONITOR LABS BLOOD AND URINE CX PENDING NEURO/PULMONARY EVAL
[2019-07-28] MEDS: PROPOFOL 1,000,000 MCG/100 ML VIAL IVPB SCH ×5 (08:45→21:13)
[2019-07-28] MEDS: DEXTROSE 5%-NORMAL SALINE 1,000 ML IV SCH ×2 (09:00→17:53)
--- NOTE | 2019-07-28 09:18 | PN ---
Teaching Attending Note Name of Resident: Santi Smith ATTENDING PHYSICIAN STATEMENT I saw and evaluated the patient. I reviewed the resident's note and discussed the case with the resident. I agree with the resident's findings and plan as documented. SUBJECTIVE: Pt seen and examined in the ICU. Intubated, sedated on volume assist control with 60% FiO2. No pressors. No fevers. OBJECTIVE: Vital Signs Period Temp Pulse Resp BP Sys/Mccoy Pulse Ox Last 24 Hr 98.4 F-99 F 72-105 12-19 115-183/64-121 50-100 Intake & Output 07/25/19 07/26/19 07/27/19 07/28/19 23:59 23:59 23:59 23:59 Intake Total 364 Balance 364 Weight 81.647 kg Gen: intubated, sedated Heart: RRR Lung: decreased breath sounds at the bases Abd: soft, nontender Ext: no edema CBC, BMP 07/27/19 12:43 07/27/19 12:43 Active Medications Albuterol/Ipratropium (Duoneb -) 1 amp NEB RQID NICOLASA Dexamethasone Sodium Phosphate (Decadron Injection -) 10 mg IVPUSH Q8H-IV NICOLASA Heparin Sodium (Porcine) (Heparin -) 5,000 unit SQ BID NICOLASA Propofol (Diprivan -) 1,000,000 mcg in 100 mls @ 2.449 mls/hr IVPB TITR NICOLASA; Protocol Last Admin: 07/28/19 08:45 Dose: 32.4 mcg/kg/min, 15.872 mls/hr Dextrose/Sodium Chloride (D5-Ns -) 1,000 mls @ 100 mls/hr IV ASDIR NICOLASA Fentanyl 500 mcg/ Dextrose 100 mls @ 10 mls/hr IVPB TITR NICOLASA; Protocol Pantoprazole Sodium (Protonix Iv) 40 mg IVPUSH DAILY NICOLASA Sodium Chloride (Normal Saline For Inhalation -) 3 ml IH Q6H PRN PRN Reason: WHEEZING ASSESSMENT AND PLAN: Acute Respiratory Failure Vocal Cord Dysfunction Stridor URI - IV decadron - inhaled bronchodilators - taper FiO2 to keep SpO2 >90% - lighten sedation in AM to assess mental status - spontaneous breathing trials as tolerated when mental status improved - check cuff leak prior to extubation - enteral feeds if unable to extubate - DVT/GI prophylaxis - continue ICU monitoring critical care time spent in reviewing chart, evaluating patient and formulating plan 35 min
[2019-07-28] MEDS ORDERED: fentaNYL CITRATE 250 MCG/5 ML VIAL ONE ×2 (09:42→20:14)
--- NOTE | 2019-07-28 09:54 | PN ---
Physical Exam: SUBJECTIVE: Patient seen and examined. Intubated/sedated. HD stable Vent: 50% Fio2, R 12, TV 450 OBJECTIVE: Vital Signs Period Temp Pulse Resp BP Sys/Mccoy Pulse Ox Last 24 Hr 98.4 F-99 F 72-105 12-19 115-183/64-121 50-100 GENERAL: intubated/ sedated EYES: PERRL ENT:oropharynx clear without exudates, dry mucous membranes. NECK: supple. LUNGS: decreased breath sounds, no stridor HEART: RRR ABDOMEN: Soft, nondistended, +BS EXTREMITIES: 2+ pulses,no edema. Laboratory Results - last 24 hr 07/27/19 07/27/19 07/27/19 11:34 12:43 12:43 WBC 15.0 H RBC 4.00 Hgb 12.8 Hct 38.3 MCV 95.8 MCH 32.1 MCHC 33.5 RDW 13.1 Plt Count 257 MPV 9.1 Absolute Neuts (auto) 11.4 H Neutrophils % 76.3 Lymphocytes % 13.3 D Monocytes % 9.0 Eosinophils % 0.5 D Basophils % 0.9 Nucleated RBC % 0 Anticoagulation Therapy Puncture Site ABG pH ABG pCO2 at Pt Temp ABG pO2 at Pt Temp ABG HCO3 ABG O2 Sat (Measured) ABG O2 Content ABG Base Excess Ron Test Carboxyhemoglobin Methemoglobin O2 Delivery Device Oxygen Flow Rate Vent Mode Vent Rate Mechanical Rate Pressure Support Vent Sodium 137 Potassium 3.6 Chloride 103 Carbon Dioxide 30 Anion Gap 3 L BUN 13.0 Creatinine 1.1 Est GFR (CKD-EPI)AfAm 97.49 Est GFR (CKD-EPI)NonAf 84.12 Random Glucose 120 H Calcium 8.8 Total Bilirubin 0.4 AST 20 ALT 32 Alkaline Phosphatase 102 Total Protein 6.9 Albumin 3.8 Influenza A (Rapid) Negative Influenza B (Rapid) Negative 07/27/19 13:39 WBC RBC Hgb Hct MCV MCH MCHC RDW Plt Count MPV Absolute Neuts (auto) Neutrophils % Lymphocytes % Monocytes % Eosinophils % Basophils % Nucleated RBC % Anticoagulation Therapy No Result Required. Puncture Site No Result Required. ABG pH 7.34 L ABG pCO2 at Pt Temp 55.3 H ABG pO2 at Pt Temp 137 H ABG HCO3 28.9 H ABG O2 Sat (Measured) 98.9 H ABG O2 Content 17.6 ABG Base Excess 2.5 H Ron Test No Result Required. Carboxyhemoglobin 1.6 Methemoglobin < 1.0 O2 Delivery Device No Result Required. Oxygen Flow Rate No Result Required. Vent Mode No Result Required. Vent Rate No Result Required. Mechanical Rate No Result Required. Pressure Support Vent No Result Required. Sodium Potassium Chloride Carbon Dioxide Anion Gap BUN Creatinine Est GFR (CKD-EPI)AfAm Est GFR (CKD-EPI)NonAf Random Glucose Calcium Total Bilirubin AST ALT Alkaline Phosphatase Total Protein Albumin Influenza A (Rapid) Influenza B (Rapid) ASSESSMENT/PLAN: #Acute Respiratory Failure #B/L Vocal cord paralysis #Glottis/Epiglottis Stenosis #URI #Stridor -cont. Decadron 10mg q8 -duonebs -intubated/sedated -daily sedation vacations -SBT's as tolerated. likely in AM -dvt ppx/gi ppx Visit type - Emergency Visit Emergency Visit: Yes ED Registration Date: 07/27/19 Care time: The patient presented to the Emergency Department on the above date and was hospitalized for further evaluation of their emergent condition. - New Patient This patient is new to me today: Yes Date on this admission: 07/28/19 - Critical Care Critical Care patient: Yes Total Critical Care Time (in minutes): 35 Critical Care Statement: The care of this patient involved high complexity decision making to prevent further life threatening deterioration of the patient 's condition and/or to evaluate & treat vital organ system(s) failure or risk of failure. ATTENDING PHYSICIAN STATEMENT I saw and evaluated the patient. I reviewed the resident's note and discussed the case with the resident. I agree with the resident's findings and plan as documented. SUBJECTIVE: OBJECTIVE: ASSESSMENT AND PLAN:
[2019-07-28] MEDS: FENTANYL INJECTION 500 MCG in DEXTROSE 5%-WATER - 90 ML IVPB SCH ×2 (10:00→21:16)
[2019-07-28] MEDS: HEPARIN NA (PORCINE) 5,000 UNITS/ML 1ML VIAL SQ SCH ×2 (10:08→21:14)
[2019-07-28] MEDS: DEXAMETHASONE SOD PHOSPHATE 10 MG/1 ML VIAL IVPUSH SCH ×2 (10:08→17:50)
[2019-07-28] MEDS: PANTOPRAZOLE SODIUM 40 MG VIAL IVPUSH SCH (10:08)
[2019-07-28] MEDS: ALBUTEROL SO4 2.5/IPRATROPIUM 0.5 INH SOL 3 ML VIAL.NEB. NEB SCH ×3 (13:00→21:00)
[2019-07-28 13:18] LABS: COCAINE, UR NEGATIVE ng/ml (CUTOFF=300); METHADONE, UR NEGATIVE ng/ml (CUTOFF=300); OPIATES, URI NEGATIVE ng/ml (CUTOFF=300); PHENCYCLIDINE,URINE NEGATIVE ng/ml (CUTOFF=25); URINE AMPHETAMINES NEGATIVE ng/ml (CUTOFF=500); URINE BARBITURATES NEGATIVE ng/ml (CUTOFF=200)
[2019-07-28 13:20] LABS: URINE BENZODIAZEPINES POSITIVE ng/ml (CUTOFF=200)
[2019-07-29] MEDS: DEXAMETHASONE SOD PHOSPHATE 10 MG/1 ML VIAL IVPUSH SCH ×3 (01:12→17:50)
[2019-07-29] MEDS: PROPOFOL 1,000,000 MCG/100 ML VIAL IVPB SCH ×3 (01:13→21:02)
[2019-07-29] MEDS ORDERED: fentaNYL CITRATE 250 MCG/5 ML VIAL ONE (04:37)
[2019-07-29] MEDS ORDERED: MIDAZOLAM HCL 2 MG/2 ML SINGLE DOSE VIAL IVPUSH ONE ×2 (06:01)
[2019-07-29] MEDS: FENTANYL INJECTION 500 MCG in DEXTROSE 5%-WATER - 90 ML IVPB SCH ×2 (06:05→21:01)
[2019-07-29 06:08] LABS: ARTERIAL BLD GAS O2 SATURATION 98.8 % (95-98); ARTERIAL BLOOD GAS BASE EXCESS 2.2 meq/l (-2-2); ARTERIAL BLOOD GAS PCO2 45.3 mmHg (35-45); ARTERIAL BLOOD GAS pH 7.39 (7.35-7.45)
[2019-07-29 06:12] LABS: ARTERIAL BLOOD GAS PO2 139 mmHg (80-100)
[2019-07-29 06:13] LABS: ALLENS TEST POSITIVE
[2019-07-29 07:15] LABS: HEMATOCRIT 36.9 % (35.4-49); HEMOGLOBIN 12.5 GM/dL (11.7-16.9); MCH 32.6 pg (25.7-33.7); MCHC 33.9 g/dl (32.0-35.9); MEAN CELL VOLUME 96.3 fl (80-96); MEAN PLT VOLUME 10.1 fl (7.5-11.1); PLATELET COUNT 243 K/MM3 (134-434); RBC 3.83 M/mm3 (4.00-5.60); RDW 13.4 % (11.9-15.9); WHITE BLOOD COUNT 13.1 K/mm3 (4.0-10.0)
[2019-07-29 07:33] LABS: ALBUMIN 3.2 g/dl (3.4-5.0); BILIRUBIN,TOTAL 0.2 mg/dL (0.2-1); BLOOD UREA NITROGEN 13.2 mg/dL (7-18); CALCIUM 8.8 mg/dL (8.5-10.1); CREATININE 0.8 mg/dL (0.55-1.3); MAGNESIUM 2.4 mg/dL (1.8-2.4); PHOSPHOROUS 3.2 mg/dL (2.5-4.9); POTASSIUM 4.6 mmol/L (3.5-5.1); TOT PROT 6.5 g/dl (6.4-8.2)
[2019-07-29] MEDS: ALBUTEROL SO4 2.5/IPRATROPIUM 0.5 INH SOL 3 ML VIAL.NEB. NEB SCH ×4 (08:50→21:49)
[2019-07-29] MEDS: PANTOPRAZOLE SODIUM 40 MG VIAL IVPUSH SCH (10:02)
--- NOTE | 2019-07-29 10:21 | PN ---
Progress Note (short form) - Note Progress Note: Pulm/CCM SUBJECTIVE Pt seen and examined in the ICU. -had cuff leak, extubated this am -no post extubation stridor OBJECTIVE: Vital Signs Temp 98.2 F 07/29/19 04:00 Pulse 46 L 07/29/19 08:00 Resp 20 07/29/19 09:00 BP 96/54 L 07/29/19 08:00 Pulse Ox 100 07/28/19 21:42 Intake & Output 07/28/19 07/28/19 07/29/19 11:59 23:59 11:59 Intake Total 404 940 Output Total 1600 800 Balance 404 -1600 140 Weight 81.647 kg Intake: IV 104 940 D5-Ns - 1,000 ml @ 100 500 mls/hr IV ASDIR [facility] Rx#: [id number] DIPRIVAN - 1,000,000 mcg 320 In 100 ml @ 5 MCG/KG/MIN 2.449 mls/hr IVPB TITR [facility] Rx#:[id number] MIDAZOLAM 100MG/100ML-0.9 104 %NACL 100 mg In 100 ml @ 1 MG/HR 1 mls/hr IVPB TITR [facility] Rx#:[id number] Sublimaze Injection - 500 120 Mcg In D5w - 90 ml @ 50 MCG/HR 10 mls/hr IVPB TITR [facility] Rx#:[id number] IVPB 300 Output: Urine 1600 800 Villafana 1600 800 Other: Height 5 ft 9 in Body Mass Index (BMI) 26.6 Gen: extubated, awake alert Neck: some mild upper airway sounds but no overt stridor, no distress, no prolonged expiratory phase Heart: RRR Lung: clear Abd: soft, nontender Ext: no edema CBC, BMP 07/29/19 05:40 07/29/19 05:40 Active Medications Albuterol/Ipratropium (Duoneb -) 1 amp NEB RQID [facility] Last Admin: 07/28/19 21:00 Dose: 1 amp Dexamethasone Sodium Phosphate (Decadron Injection -) 10 mg IVPUSH Q8H-IV [facility] Last Admin: 07/29/19 01:12 Dose: 10 mg Heparin Sodium (Porcine) (Heparin -) 5,000 unit SQ BID [facility] Last Admin: 07/28/19 21:14 Dose: 5,000 unit Propofol (Diprivan -) 1,000,000 mcg in 100 mls @ 2.449 mls/hr IVPB TITR [facility]; Protocol Last Admin: 07/29/19 06:06 Dose: 50 mcg/kg/min, 24.494 mls/hr Dextrose/Sodium Chloride (D5-Ns -) 1,000 mls @ 100 mls/hr IV ASDIR [facility] Last Admin: 07/28/19 17:53 Dose: 100 mls/hr Fentanyl 500 mcg/ Dextrose 100 mls @ 10 mls/hr IVPB TITR [facility]; Protocol Last Admin: 07/29/19 06:05 Dose: 50 mcg/hr, 10 mls/hr Pantoprazole Sodium (Protonix Iv) 40 mg IVPUSH DAILY [facility] Last Admin: 07/28/19 10:08 Dose: 40 mg Sodium Chloride (Normal Saline For Inhalation -) 3 ml IH Q6H PRN PRN Reason: WHEEZING ASSESSMENT AND PLAN: Acute Respiratory Failure Vocal Cord Dysfunction Stridor URI - IV decadron, slow taper - monitor for stidor post extubation - ENT eval, likely as outpt - DVT/GI prophylaxis - continue ICU monitoring critical care time spent in reviewing chart, evaluating patient and formulating plan 35 min Vivian ACNP [id number]
[2019-07-29] MEDS: HEPARIN NA (PORCINE) 5,000 UNITS/ML 1ML VIAL SQ SCH ×2 (11:02→21:04)
--- NOTE | 2019-07-29 12:41 | PN ---
Progress Note, Physician Chief Complaint: patient on a venti mask extubated earlier today on iv decadron taper - Current Medication List Current Medications: Active Medications Albuterol/Ipratropium (Duoneb -) 1 amp NEB RQID [facility] Last Admin: 07/29/19 08:50 Dose: 1 amp Dexamethasone Sodium Phosphate (Decadron Injection -) 10 mg IVPUSH Q8H-IV [facility] Last Admin: 07/29/19 10:02 Dose: 10 mg Heparin Sodium (Porcine) (Heparin -) 5,000 unit SQ BID [facility] Last Admin: 07/29/19 11:02 Dose: 5,000 unit Propofol (Diprivan -) 1,000,000 mcg in 100 mls @ 2.449 mls/hr IVPB TITR [facility]; Protocol Last Admin: 07/29/19 06:06 Dose: 50 mcg/kg/min, 24.494 mls/hr Dextrose/Sodium Chloride (D5-Ns -) 1,000 mls @ 100 mls/hr IV ASDIR [facility] Last Admin: 07/28/19 17:53 Dose: 100 mls/hr Fentanyl 500 mcg/ Dextrose 100 mls @ 10 mls/hr IVPB TITR [facility]; Protocol Last Admin: 07/29/19 06:05 Dose: 50 mcg/hr, 10 mls/hr Pantoprazole Sodium (Protonix Iv) 40 mg IVPUSH DAILY [facility] Last Admin: 07/29/19 10:02 Dose: 40 mg Sodium Chloride (Normal Saline For Inhalation -) 3 ml IH Q6H PRN PRN Reason: WHEEZING - Objective Vital Signs: Vital Signs Temperature 98.2 F 07/29/19 04:00 Pulse Rate 51 L 07/29/19 10:00 Respiratory Rate 20 07/29/19 10:00 Blood Pressure 118/87 07/29/19 10:00 O2 Sat by Pulse Oximetry (%) 100 07/28/19 21:42 Constitutional: Yes: Calm Cardiovascular: Yes: Regular Rate and Rhythm, S1, S2 Respiratory: Yes: CTA Bilaterally, On Venti-Mask Gastrointestinal: Yes: Normal Bowel Sounds, Soft Edema: No Neurological: Yes: Alert Labs: CBC, BMP 07/29/19 05:40 07/29/19 05:40 Problem List - Problems (1) Endotracheally intubated Assessment/Plan: acute respiratory failure s/p extubation earlier today on iv decadron icu monitoiring for now gi and dvt ppx Code(s): Z97.8 - PRESENCE OF OTHER SPECIFIED DEVICES
--- NOTE | 2019-07-29 14:14 | EKG ---
Test Reason : Blood Pressure : / mmHG Vent. Rate : 069 BPM Atrial Rate : 069 BPM P-R Int : 148 ms QRS Dur : 094 ms QT Int : 442 ms P-R-T Axes : 060 023 043 degrees QTc Int : 473 ms POOR DATA QUALITY, INTERPRETATION MAY BE ADVERSELY AFFECTED NORMAL SINUS RHYTHM CANNOT RULE OUT ANTERIOR INFARCT , AGE UNDETERMINED VOLTAGE CRITERIA FOR LEFT VENTRICULAR HYPERTROPHY EARLY REPOLARIZATION ABNORMAL ECG WHEN COMPARED WITH ECG OF 27-JUL-2019 11:01, QT HAS LENGTHENED Confirmed by LEIGH ANN DIAZ MD ([id number]) on 07/29/2019 2:13:40 PM Referred By: Confirmed By:LEIGH ANN DIAZ MD
[2019-07-29] MEDS: DEXTROSE 5%-NORMAL SALINE 1,000 ML IV SCH (21:01)
[2019-07-30] MEDS: DEXAMETHASONE SOD PHOSPHATE 10 MG/1 ML VIAL IVPUSH SCH (01:15)
[2019-07-30 07:38] LABS: HEMATOCRIT 36.6 % (35.4-49); HEMOGLOBIN 12.4 GM/dL (11.7-16.9); MCH 32.4 pg (25.7-33.7); MCHC 33.8 g/dl (32.0-35.9); MEAN CELL VOLUME 96.1 fl (80-96); MEAN PLT VOLUME 10.1 fl (7.5-11.1); PLATELET COUNT 251 K/MM3 (134-434); RBC 3.81 M/mm3 (4.00-5.60); RDW 13.3 % (11.9-15.9); WHITE BLOOD COUNT 16.2 K/mm3 (4.0-10.0)
[2019-07-30] MEDS: ALBUTEROL SO4 2.5/IPRATROPIUM 0.5 INH SOL 3 ML VIAL.NEB. NEB SCH ×4 (07:45→19:57)
[2019-07-30 07:48] LABS: BLOOD UREA NITROGEN 10.5 mg/dL (7-18); CALCIUM 8.4 mg/dL (8.5-10.1); CREATININE 0.7 mg/dL (0.55-1.3); MAGNESIUM 2.4 mg/dL (1.8-2.4); PHOSPHOROUS 2.8 mg/dL (2.5-4.9); POTASSIUM 4.1 mmol/L (3.5-5.1)
[2019-07-30] MEDS ORDERED: DEXAMETHASONE SOD PHOSPHATE 10 MG/1 ML VIAL IVPUSH SCH (08:23)
--- NOTE | 2019-07-30 09:49 | PN ---
Progress Note (short form) - Note Progress Note: Pulm/CCM SUBJECTIVE Pt seen and examined in the ICU. -improved exam -resting comforatbly -decreasing steroids OBJECTIVE: Vital Signs Temp 98.4 F 07/29/19 22:00 Pulse 59 L 07/30/19 08:00 Resp 20 07/30/19 06:00 BP 120/75 07/30/19 08:00 Pulse Ox 100 07/28/19 21:42 Intake & Output 07/29/19 07/29/19 07/30/19 11:59 23:59 11:59 Intake Total 940 1400 480 Output Total 800 4300 Balance 140 1400 -3820 Weight 81.647 kg Intake: IV 940 1400 0 D5-Ns - 1,000 ml @ 923 374 4620 mls/hr IV ASDIR NICOLASA Rx#: [id number] DIPRIVAN - 1,000,000 mcg 320 0 In 100 ml @ 5 MCG/KG/MIN 2.449 mls/hr IVPB TITR [facility] Rx#:[id number] Sublimaze Injection - 500 120 Mcg In D5w - 90 ml @ 50 MCG/HR 10 mls/hr IVPB TITR [facility] Rx#:[id number] Oral 480 Output: Urine 800 4300 Villafana 800 4300 Other: Voiding Method Indwelling Catheter Height 5 ft 9 in Body Mass Index (BMI) 26.6 Gen: extubated, awake alert Neck: no stridor, no upper airway sounds, improved from immediate post extubation Heart: RRR Lung: clear Abd: soft, nontender Ext: no edema CBC, BMP 07/30/19 05:40 07/30/19 05:40 Active Medications Albuterol/Ipratropium (Duoneb -) 1 amp NEB RQID [facility] Last Admin: 07/30/19 07:45 Dose: 1 amp Dexamethasone Sodium Phosphate (Decadron Injection -) 4 mg IVPUSH Q8H-IV [facility] Heparin Sodium (Porcine) (Heparin -) 5,000 unit SQ BID [facility] Last Admin: 07/29/19 21:04 Dose: 5,000 unit Pantoprazole Sodium (Protonix Iv) 40 mg IVPUSH DAILY [facility] Last Admin: 07/29/19 10:02 Dose: 40 mg ASSESSMENT AND PLAN: Acute Respiratory Failure Vocal Cord Dysfunction Stridor URI - IV decadron, slow taper, transition to Pred - monitor for stidor post extubation - ENT eval, likely as outpt - DVT/GI prophylaxis - ok for floor bed Vivian ACNP [id number]
[2019-07-30] MEDS: HEPARIN NA (PORCINE) 5,000 UNITS/ML 1ML VIAL SQ SCH ×2 (10:21→21:47)
[2019-07-30] MEDS: PANTOPRAZOLE SODIUM 40 MG VIAL IVPUSH SCH (10:21)
[2019-07-30] MEDS: DEXAMETHASONE SOD PHOSPHATE 4 MG/1 ML VIAL IVPUSH SCH ×2 (10:21→18:43)
--- NOTE | 2019-07-30 11:21 | PN ---
Progress Note, Physician - Current Medication List Current Medications: Active Medications Albuterol/Ipratropium (Duoneb -) 1 amp NEB RQID [facility] Last Admin: 07/30/19 07:45 Dose: 1 amp Dexamethasone Sodium Phosphate (Decadron Injection -) 4 mg IVPUSH Q8H-IV [facility] Last Admin: 07/30/19 10:21 Dose: 4 mg Heparin Sodium (Porcine) (Heparin -) 5,000 unit SQ BID [facility] Last Admin: 07/30/19 10:21 Dose: 5,000 unit Pantoprazole Sodium (Protonix Iv) 40 mg IVPUSH DAILY [facility] Last Admin: 07/30/19 10:21 Dose: 40 mg - Objective Vital Signs: Vital Signs Temperature 97.6 F 07/30/19 10:00 Pulse Rate 60 07/30/19 10:00 Respiratory Rate 20 07/30/19 10:00 Blood Pressure 139/86 07/30/19 10:00 O2 Sat by Pulse Oximetry (%) 100 07/28/19 21:42 HENT: Yes: Hoarseness Cardiovascular: Yes: S1, S2 Respiratory: Yes: Regular, CTA Bilaterally Gastrointestinal: Yes: Normal Bowel Sounds, Soft Labs: CBC, BMP 07/30/19 05:40 07/30/19 05:40 Problem List - Problems (1) Endotracheally intubated Assessment/Plan: now extubated steroids ent consult Code(s): Z97.8 - PRESENCE OF OTHER SPECIFIED DEVICES (2) URI (upper respiratory infection) Assessment/Plan: monitor Code(s): J06.9 - ACUTE UPPER RESPIRATORY INFECTION, UNSPECIFIED (3) Vocal cord paralysis Assessment/Plan: ENT Code(s): J38.00 - PARALYSIS OF VOCAL CORDS AND LARYNX, UNSPECIFIED
[2019-07-31] MEDS: DEXAMETHASONE SOD PHOSPHATE 4 MG/1 ML VIAL IVPUSH SCH ×2 (02:15→09:03)
[2019-07-31] MEDS: ALBUTEROL SO4 2.5/IPRATROPIUM 0.5 INH SOL 3 ML VIAL.NEB. NEB SCH ×4 (07:35→20:39)
[2019-07-31] MEDS: HEPARIN NA (PORCINE) 5,000 UNITS/ML 1ML VIAL SQ SCH ×2 (09:03→21:48)
[2019-07-31] MEDS: PANTOPRAZOLE SODIUM 40 MG VIAL IVPUSH SCH (09:03)
--- NOTE | 2019-07-31 11:29 | PN ---
Progress Note (short form) - Note Progress Note: PULM/CCM Pt seen and examined in the ICU, remains on 4mg Decadron q8, CA+OX3, NAD, resting comfortably Active Medications Albuterol/Ipratropium (Duoneb -) 1 amp NEB RQID [facility] Last Admin: 07/31/19 07:35 Dose: 1 amp Dexamethasone Sodium Phosphate (Decadron Injection -) 4 mg IVPUSH Q8H-IV [facility] Last Admin: 07/31/19 09:03 Dose: 4 mg Heparin Sodium (Porcine) (Heparin -) 5,000 unit SQ BID [facility] Last Admin: 07/31/19 09:03 Dose: 5,000 unit Pantoprazole Sodium (Protonix Iv) 40 mg IVPUSH DAILY [facility] Last Admin: 07/31/19 09:03 Dose: 40 mg Vital Signs Period Temp Pulse Resp BP Sys/Mccoy Pulse Ox Last 24 Hr 98.0 F-98.5 F 54-80 15-20 129-144/62-101 99-99 Intake & Output 07/28/19 07/29/19 07/30/19 07/31/19 23:59 23:59 23:59 23:59 Intake Total 404 2340 1490 Output Total 2100 800 4800 Balance -1696 1540 -3310 Weight 81.647 kg 81.647 kg Gen: Well nourished young man CA+OX3, NAD Neck: slight dysphonia when talking but no stridor, no upper airway sounds, a/ p report marked improvement since extubation Heart: nml S1 S2, RR, unablt to appreciate any G/R/M Lung: CTAB Abd: + BS S/S N/T X4 Q Ext: + Pulses, WWPX4, no edema CBC, BMP 07/30/19 05:40 07/30/19 05:40 CXR 07/29: A single AP view of the chest reveals clear lungs, and endotracheal tube with tip above the erik , prominent mediastinum and sharp angles. An acute process is not seen. Since 07/27/2019, there is no change of an adverse nature. CR NECK 07/27: 2 views of the neck soft tissues reveal intact prevertebral soft tissues, minimal degenerative changes and the AP view there is slight tracheal narrowing just above the thoracic inlet. This is not appreciated on the lateral view. 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 For more complete evaluation, follow-up CT scan may be of help. ASSESS: s/p Acute Respiratory Failure 2/2 Vocal Cord Dysfunction i/s/o URI PLAN: - IV decadron @ 4mg q8 (12mg/Day) convert to PO Pred (75mg/Day) & drop to 60mg Pred/Day NOW. D/c --> Home -60/D X3 -50/D X3 -40/D X3 -30/D X3 -20/D X3 -10/D X3 -5/D X3 --> OFF - No more smoking Cigarettes - Out pt ENT - Out patient Sleep Study - Transfer out of ICU [facility] ICU PULM/CCM [id number]
--- NOTE | 2019-07-31 11:29 | PN ---
Progress Note, Physician - Current Medication List Current Medications: Active Medications Albuterol/Ipratropium (Duoneb -) 1 amp NEB RQID [facility] Last Admin: 07/31/19 07:35 Dose: 1 amp Dexamethasone Sodium Phosphate (Decadron Injection -) 4 mg IVPUSH Q8H-IV [facility] Last Admin: 07/31/19 09:03 Dose: 4 mg Heparin Sodium (Porcine) (Heparin -) 5,000 unit SQ BID [facility] Last Admin: 07/31/19 09:03 Dose: 5,000 unit Pantoprazole Sodium (Protonix Iv) 40 mg IVPUSH DAILY [facility] Last Admin: 07/31/19 09:03 Dose: 40 mg - Objective Vital Signs: Vital Signs Temperature 98.4 F 07/31/19 06:00 Pulse Rate 71 07/31/19 08:00 Respiratory Rate 19 07/31/19 09:00 Blood Pressure 134/70 07/31/19 08:00 O2 Sat by Pulse Oximetry (%) 99 07/31/19 09:00 Cardiovascular: Yes: Regular Rate and Rhythm Respiratory: Yes: Regular, CTA Bilaterally Gastrointestinal: Yes: Normal Bowel Sounds, Soft Labs: CBC, BMP 07/30/19 05:40 07/30/19 05:40 Problem List - Problems (1) Endotracheally intubated Assessment/Plan: now extubated steroids ent consult Code(s): Z97.8 - PRESENCE OF OTHER SPECIFIED DEVICES (2) URI (upper respiratory infection) Assessment/Plan: monitor Code(s): J06.9 - ACUTE UPPER RESPIRATORY INFECTION, UNSPECIFIED (3) Vocal cord paralysis Assessment/Plan: ENT Consult Code(s): J38.00 - PARALYSIS OF VOCAL CORDS AND LARYNX, UNSPECIFIED
--- NOTE | 2019-07-31 14:08 | CONSULT ---
Consult - text type - Consultation Consultation Note: ENT consult 39 yo man known to me from a previous visit 7 months ago. 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 Had a new sore throat and respiratory failure, requiring 2 days of oral intubation. Still has some throat pain and voice changes, but is feeling much better. Never saw a neurologist or a disposal operator. MRI of the brain last visit and a neck CT showed no discrete lesions. P/No change in H&N exam Mild inspiratory stridor FOL on the left. yellow crusts and mucopus in the nose and going into the nasopharynx and hypopharynx. Slightly retrodisplaced epiglottis. Both arytenoids move. The left vocal cord is immobile, the right is paretic with minimal abduction. Glottic chink is about 2 mm. Mild laryngeal erythema. Imp: Bilateral vocal cord motion impairment, presumably exacerbated by a viral RTI and possible sinusitis I am starting him on amoxicillin to cover the possibility of acute sinusitis. Recommend an MRI of the neck and chest tracing the course of both recurrent laryngeal nerves from the brainstem to the aortic arch. Contact me with the results. If no lesions are found, needs outpatient laryngology and neurology consults, the latter to assess for medical conditions that might cause neuropathy. No need for acute surgical or airway intervention, as long as his current improvement lasts. Reconsult if worsens.
[2019-07-31] MEDS ORDERED: PT OWN MED DRAWER 7, Y5N ONE (16:09)
[2019-07-31] MEDS: AMOXICILLIN 500 MG CAPSULE (FP) PO SCH ×2 (16:11→21:48)
[2019-08-01] MEDS: AMOXICILLIN 500 MG CAPSULE (FP) PO SCH ×3 (06:18→22:45)
[2019-08-01] MEDS ORDERED: PT OWN MED DRAWER 7, Y5N ONE ×4 (06:54→21:09)
[2019-08-01] MEDS: ALBUTEROL SO4 2.5/IPRATROPIUM 0.5 INH SOL 3 ML VIAL.NEB. NEB SCH ×4 (07:30→21:40)
--- NOTE | 2019-08-01 08:28 | PN ---
Physical Exam: SUBJECTIVE: Patient seen and examined on morning rounds. No focal complaints. Patient reports feeling much better, wants to go home, endorses that he is planning to quit smoking. Reports that his voice is not yet back at baseline. Denies CP/SOB/ F/C/N/V/difficulty breathing at the current time. Order is in for transfer, patient remains hospitalized for MRI studies before outpatient ENT followup and sleep study. PO taper starting this morning. Villafana D/John, tolerating PO well. OBJECTIVE: Vital Signs Period Temp Pulse Resp BP Sys/Mccoy Pulse Ox Last 24 Hr 98 F-98.4 F 55-65 15-22 125-134/65-90 98-99 GENERAL: The patient is awake, alert, and fully oriented, in no acute distress. HEENT: NCAT, EOMI, MMM, normal morphologies. LUNGS: Breath sounds equal, clear to auscultation bilaterally, no stridor, no wheezes, no crackles, no accessory muscle use. HEART: Regular rate and rhythm, S1, S2 without murmur, rub or gallop. ABDOMEN: Soft, nontender, nondistended, no guarding, no rebound. EXTREMITIES: 2+ pulses, warm, well-perfused, no edema. NEUROLOGICAL: Cranial nerves II through XII grossly intact. Normal speech, gait not observed. SKIN: Warm, dry, normal turgor, no rashes or lesions noted Active Medications Generic Name Dose Route Start Last Admin Trade Name Freq PRN Reason Stop Dose Admin Albuterol/Ipratropium 1 amp 07/28/19 12:00 08/01/19 07:30 Duoneb - NEB 1 amp RQID [facility] Administration Amoxicillin 500 mg 07/31/19 14:15 08/01/19 06:18 Amoxicillin - PO 500 mg TID [facility] Administration Heparin Sodium (Porcine) 5,000 unit 07/28/19 10:00 07/31/19 21:48 Heparin - SQ 5,000 unit BID [facility] Administration Pantoprazole Sodium 40 mg 08/01/19 10:00 Protonix - PO DAILY [facility] Prednisone 60 mg 08/01/19 10:00 Deltasone - PO DAILY [facility] ASSESSMENT/PLAN: 39yo M s/p Acute Respiratory Failure 2/2 Vocal Cord Dysfunction exacerbation 2/ 2 URI. Patient now extubated, progressing appropriately, voice not currently back to baseline per patient. Ready for transfer to floor, discharge pending MRI. #Acute Respiratory Failure #B/L Vocal cord paralysis #Glottis/Epiglottis Stenosis #URI #Stridor - Oral steroid taper - Smoking Cessation - Outpatient ENT - Outpatient sleep study - MRI studies pending - Continue Amox #PPX - Heparin SQ - Protonix #Dispo: - Transfer to med/surg Visit type - Emergency Visit Emergency Visit: Yes ED Registration Date: 07/27/19 Care time: The patient presented to the Emergency Department on the above date and was hospitalized for further evaluation of their emergent condition. - New Patient This patient is new to me today: No - Critical Care Critical Care patient: Yes Total Critical Care Time (in minutes): 36 Critical Care Statement: The care of this patient involved high complexity decision making to prevent further life threatening deterioration of the patient 's condition and/or to evaluate & treat vital organ system(s) failure or risk of failure. ATTENDING PHYSICIAN STATEMENT I saw and evaluated the patient. I reviewed the resident's note and discussed the case with the resident. I agree with the resident's findings and plan as documented. SUBJECTIVE: OBJECTIVE: ASSESSMENT AND PLAN:
[2019-08-01] MEDS: HEPARIN NA (PORCINE) 5,000 UNITS/ML 1ML VIAL SQ SCH ×2 (09:46→21:21)
[2019-08-01] MEDS: PANTOPRAZOLE 40 MG TABLET (FP) PO SCH (09:46)
[2019-08-01] MEDS: predniSONE 20 MG TABLET (UD) PO SCH (09:46)
--- NOTE | 2019-08-01 10:22 | PN ---
Progress Note, Physician Chief Complaint: patient seen and examined wants to go home seen by ENT awaiting MRI - Current Medication List Current Medications: Active Medications Albuterol/Ipratropium (Duoneb -) 1 amp NEB RQID [facility] Last Admin: 08/01/19 07:30 Dose: 1 amp Amoxicillin (Amoxicillin -) 500 mg PO TID [facility] Last Admin: 08/01/19 06:18 Dose: 500 mg Heparin Sodium (Porcine) (Heparin -) 5,000 unit SQ BID [facility] Last Admin: 08/01/19 09:46 Dose: 5,000 unit Pantoprazole Sodium (Protonix -) 40 mg PO DAILY [facility] Last Admin: 08/01/19 09:46 Dose: 40 mg Prednisone (Deltasone -) 60 mg PO DAILY [facility] Last Admin: 08/01/19 09:46 Dose: 60 mg - Objective Vital Signs: Vital Signs Temperature 98.2 F 08/01/19 06:00 Pulse Rate 75 08/01/19 08:00 Respiratory Rate 16 08/01/19 08:29 Blood Pressure 126/70 08/01/19 08:00 O2 Sat by Pulse Oximetry (%) 98 08/01/19 08:29 Constitutional: Yes: Calm Neck: Yes: Trachea Midline Cardiovascular: Yes: Regular Rate and Rhythm, S1, S2 Respiratory: Yes: CTA Bilaterally Gastrointestinal: Yes: Normal Bowel Sounds, Soft Edema: No Neurological: Yes: Alert, Oriented Labs: CBC, BMP 07/30/19 05:40 07/30/19 05:40 Problem List - Problems (1) Endotracheally intubated Assessment/Plan: acute respiratory failure s/p extubation on iv decadron change to oral prednsione ENT consult noted- amoxicillin started for acute sinusitis MRI to trace course of reccurent laryngeal nerve gi and dvt ppx Code(s): Z97.8 - PRESENCE OF OTHER SPECIFIED DEVICES
--- NOTE | 2019-08-01 11:57 | EKG ---
Test Reason : Blood Pressure : / mmHG Vent. Rate : 061 BPM Atrial Rate : 061 BPM P-R Int : 122 ms QRS Dur : 084 ms QT Int : 378 ms P-R-T Axes : 044 028 031 degrees QTc Int : 380 ms NORMAL SINUS RHYTHM MINIMAL VOLTAGE CRITERIA FOR LVH, MAY BE NORMAL VARIANT NONSPECIFIC ST AND T WAVE ABNORMALITY ABNORMAL ECG WHEN COMPARED WITH ECG OF 23-DEC-2018 09:42, NO SIGNIFICANT CHANGE WAS FOUND Confirmed by BUSTER PASCUAL, YADIEL ([id number]) on 08/01/2019 11:57:11 AM Referred By: Confirmed By:YADIEL GOINS MD
--- NOTE | 2019-08-01 12:14 | PN ---
Teaching Attending Note Name of Resident: Matt Thompson ATTENDING PHYSICIAN STATEMENT I saw and evaluated the patient. I reviewed the resident's note and discussed the case with the resident. I agree with the resident's findings and plan as documented. SUBJECTIVE: Patient seen and examined in the ICU. Awake and alert. Feels better but not at baseline. No CP or SOB. Intake & Output 07/29/19 07/30/19 07/31/19 08/01/19 23:59 23:59 23:59 23:59 Intake Total 2340 1490 1220 600 Output Total 800 4800 Balance 1540 -3310 1220 600 Weight 180 lb Last Vital Signs Temp Pulse Resp BP Pulse Ox 98.2 F 75 16 126/70 98 08/01/19 06:00 08/01/19 08:00 08/01/19 08:29 08/01/19 08:00 08/01/19 08:29 Active Medications Albuterol/Ipratropium (Duoneb -) 1 amp NEB RQID [facility] Last Admin: 08/01/19 11:47 Dose: 1 amp Amoxicillin (Amoxicillin -) 500 mg PO TID [facility] Last Admin: 08/01/19 06:18 Dose: 500 mg Heparin Sodium (Porcine) (Heparin -) 5,000 unit SQ BID [facility] Last Admin: 08/01/19 09:46 Dose: 5,000 unit Pantoprazole Sodium (Protonix -) 40 mg PO DAILY [facility] Last Admin: 08/01/19 09:46 Dose: 40 mg Prednisone (Deltasone -) 60 mg PO DAILY [facility] Last Admin: 08/01/19 09:46 Dose: 60 mg Gen: awake and alert, NAD Neck: no stridor, no upper airway sounds Heart: RRR Lung: clear Abd: soft, nontender Ext: no edema ASSESSMENT AND PLAN: Acute Respiratory Failure Vocal Cord Dysfunction Stridor URI - Decadron taper - ENT evaluation noted: Needs ENT and Neuro evaluation after discharge - DVT/GI prophylaxis - Floor Dr Brand
[2019-08-02] MEDS: AMOXICILLIN 500 MG CAPSULE (FP) PO SCH (05:50)
[2019-08-02] MEDS: ALBUTEROL SO4 2.5/IPRATROPIUM 0.5 INH SOL 3 ML VIAL.NEB. NEB SCH ×2 (07:15→11:21)
[2019-08-02 08:40] LABS: BASO % 0.7 % (0-2.0); EOS % 0.3 % (0-4.5); HEMATOCRIT 42.4 % (35.4-49); HEMOGLOBIN 14.1 GM/dL (11.7-16.9); MCHC 33.4 g/dl (32.0-35.9); MEAN PLT VOLUME 8.6 fl (7.5-11.1); MONO % 8.7 % (3.8-10.2); NEUT % 64.3 % (42.8-82.8); PLATELET COUNT 348 K/MM3 (134-434); RBC 4.41 M/mm3 (4.00-5.60); RDW 13.5 % (11.9-15.9); WHITE BLOOD COUNT 16.7 K/mm3 (4.0-10.0)
[2019-08-02 09:29] LABS: ALBUMIN 3.4 g/dl (3.4-5.0); BILIRUBIN,TOTAL 0.4 mg/dL (0.2-1); BLOOD UREA NITROGEN 16.7 mg/dL (7-18); CALCIUM 9.3 mg/dL (8.5-10.1); CREATININE 0.9 mg/dL (0.55-1.3); MAGNESIUM 2.3 mg/dL (1.8-2.4); PHOSPHOROUS 3.5 mg/dL (2.5-4.9); POTASSIUM 4.1 mmol/L (3.5-5.1); TOT PROT 7.1 g/dl (6.4-8.2)
[2019-08-02] MEDS: HEPARIN NA (PORCINE) 5,000 UNITS/ML 1ML VIAL SQ SCH (09:49)
[2019-08-02] MEDS: predniSONE 20 MG TABLET (UD) PO SCH (09:49)
[2019-08-02] MEDS: PANTOPRAZOLE 40 MG TABLET (FP) PO SCH (09:49)
[2019-08-02 10:09] VITALS: BP 138/90; PULSE 69; TEMP 97.8
--- NOTE | 2019-08-02 11:19 | DS ---
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 Patient states that he has had this issue with stridor his whole life they have not found a cause states that he did follow-up with ENT who states they never figured out exactly why he has this. 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 Constitutional: Yes: Well Nourished, No Distress, Calm Cardiovascular: Yes: Regular Rate and Rhythm Respiratory: Yes: Regular Gastrointestinal: Yes: Normal Bowel Sounds, Soft Renal/: Yes: WNL Musculoskeletal: Yes: WNL Extremities: Yes: WNL Edema: No Peripheral Pulses WNL: Yes Neurological: Yes: Alert, Oriented Psychiatric: Yes: Alert, Oriented Labs: CBC, BMP 08/02/19 08:00 08/02/19 08:00 Discharge Summary Problems reviewed: Yes Reason For Visit: VOCAL CORD PALSY Current Active Problems Endotracheally intubated (Acute) Inspiratory stridor (Acute) Muscle, jerky movements (uncontrolled) (Acute) URI (upper respiratory infection) (Acute) Vocal cord paralysis (Acute) Laboratory Last Values WBC 16.7 K/mm3 (4.0-10.0) H 08/02/19 08:00 RBC 4.41 M/mm3 (4.00-5.60) 08/02/19 08:00 Hgb 14.1 GM/dL (11.7-16.9) 08/02/19 08:00 Hct 42.4 % (35.4-49) D 08/02/19 08:00 MCV 96.0 fl (80-96) 08/02/19 08:00 MCH 32.0 pg (25.7-33.7) 08/02/19 08:00 MCHC 33.4 g/dl (32.0-35.9) 08/02/19 08:00 RDW 13.5 % (11.9-15.9) 08/02/19 08:00 Plt Count 348 K/MM3 (134-434) D 08/02/19 08:00 MPV 8.6 fl (7.5-11.1) D 08/02/19 08:00 Absolute Neuts (auto) 10.8 K/mm3 (1.5-8.0) H 08/02/19 08:00 Neutrophils % 64.3 % (42.8-82.8) 08/02/19 08:00 Lymphocytes % 26.0 % (8-40) D 08/02/19 08:00 Monocytes % 8.7 % (3.8-10.2) 08/02/19 08:00 Eosinophils % 0.3 % (0-4.5) 08/02/19 08:00 Basophils % 0.7 % (0-2.0) 08/02/19 08:00 Nucleated RBC % 0 % (0-0) 08/02/19 08:00 Anticoagulation Therapy No Result Required. 07/29/19 05:25 Puncture Site Right radial 07/29/19 05:25 ABG pH 7.39 (7.35-7.45) 07/29/19 05:25 ABG pCO2 at Pt Temp 45.3 mmHg (35-45) H 07/29/19 05:25 ABG pO2 at Pt Temp 139 mmHg (80-100) H 07/29/19 05:25 ABG HCO3 27.0 mmol/L (22-27) 07/29/19 05:25 ABG O2 Sat (Measured) 98.8 % (95-98) H 07/29/19 05:25 ABG O2 Content No Result Required. 07/29/19 05:25 ABG Base Excess 2.2 meq/l (-2-2) H 07/29/19 05:25 Ron Test Positive 07/29/19 05:25 Carboxyhemoglobin 1.6 % (0-2) 07/27/19 13:39 Methemoglobin < 1.0 % (0-2) 07/27/19 13:39 O2 Delivery Device Vent 07/29/19 05:25 Oxygen Flow Rate 40% 07/29/19 05:25 Vent Mode A/c 07/29/19 05:25 Vent Rate 12 07/29/19 05:25 Mechanical Rate No Result Required. 07/29/19 05:25 PEEP 5.0 cmH2O 07/29/19 05:25 Pressure Support Vent 450 07/29/19 05:25 Sodium 137 mmol/L (136-145) 08/02/19 08:00 Potassium 4.1 mmol/L (3.5-5.1) 08/02/19 08:00 Chloride 100 mmol/L (98-107) 08/02/19 08:00 Carbon Dioxide 29 mmol/L (21-32) 08/02/19 08:00 Anion Gap 8 MMOL/L (8-16) 08/02/19 08:00 BUN 16.7 mg/dL (7-18) 08/02/19 08:00 Creatinine 0.9 mg/dL (0.55-1.3) 08/02/19 08:00 Est GFR (CKD-EPI)AfAm 124.26 08/02/19 08:00 Est GFR (CKD-EPI)NonAf 107.21 08/02/19 08:00 Random Glucose 82 mg/dL (74-106) 08/02/19 08:00 Calcium 9.3 mg/dL (8.5-10.1) 08/02/19 08:00 Phosphorus 3.5 mg/dL (2.5-4.9) 08/02/19 08:00 Magnesium 2.3 mg/dL (1.8-2.4) 08/02/19 08:00 Total Bilirubin 0.4 mg/dL (0.2-1) 08/02/19 08:00 AST 18 U/L (15-37) 08/02/19 08:00 ALT 38 U/L (13-61) 08/02/19 08:00 Alkaline Phosphatase 85 U/L (45-117) 08/02/19 08:00 Total Protein 7.1 g/dl (6.4-8.2) 08/02/19 08:00 Albumin 3.4 g/dl (3.4-5.0) 08/02/19 08:00 Opiates Screen Negative ng/ml (GBKGKZ=404) 07/28/19 11:00 Methadone Screen Negative ng/ml (BRZCJX=243) 07/28/19 11:00 Barbiturate Screen Negative ng/ml (XDOHBV=630) 07/28/19 11:00 Phencyclidine Screen Negative ng/ml (CUTOFF=25) 07/28/19 11:00 Ur Amphetamines Screen Negative ng/ml (IPOEER=556) 07/28/19 11:00 MDMA (Ecstasy) Screen Negative ng/ml (ZWQTZL=479) 07/28/19 11:00 Benzodiazepines Screen Positive ng/ml (OUJYIO=337) A* 07/28/19 11:00 Cocaine Screen Negative ng/ml (RDJFZE=711) 07/28/19 11:00 U Marijuana (THC) Screen Negative ng/ml (CUTOFF=50) 07/28/19 11:00 Influenza A (Rapid) Negative (Negative) 07/27/19 11:34 Influenza B (Rapid) Negative (Negative) 07/27/19 11:34 Vital Signs Temp 97.8 F 08/02/19 10:00 Pulse 69 08/02/19 10:00 Resp 20 08/02/19 10:00 BP 138/90 08/02/19 10:00 Pulse Ox 98 08/01/19 21:00 Intake & Output 08/01/19 08/01/19 08/02/19 11:59 23:59 11:59 Intake Total 600 600 470 Balance 600 600 470 Intake: Oral 600 600 470 Other: Voiding Method Urinal Urinal Toilet # Unmeasured Voids [place] 3 1 1 Bowel Movement No No Condition: Stable - Instructions Referrals: Maykel Chanel MD [Staff Physician] - Geoff Stoddard MD [Primary Care Provider] - Te Doherty MD [Staff Physician] - Disposition: HOME - Home Medications Comprehensive Discharge Medication List: Ambulatory Orders predniSONE [Deltasone -] 20 mg PO DAILY #14 tablet 12/24/18 Amoxicillin - [Amoxicillin 500mg Capsule -] 500 mg PO TID #14 capsule 08/02/19 Pantoprazole Sodium [Protonix -] 40 mg PO DAILY #30 tablet.ec 08/02/19 Prednisone 10 mg PO ASDIR #42 tablet 08/02/19
--- NOTE | 2019-08-02 11:30 | PN ---
Progress Note (short form) - Note Progress Note: PULMONARY Denies shortness of breath. Anxious to go home. Voice still raspy. Vital Signs Period Temp Pulse Resp BP Sys/Mccoy Pulse Ox Last 24 Hr 97.8 F-98.7 F 62-69 16-20 125-138/58-90 98 Gen: NAD at rest Neck: no stridor Heart: RRR Lung: decreased breath sounds at the bases Abd: soft, nontender Ext: no edema CBC, BMP 08/02/19 08:00 08/02/19 08:00 Active Medications Albuterol/Ipratropium (Duoneb -) 1 amp NEB RQID [facility] Last Admin: 08/02/19 11:21 Dose: Not Given Amoxicillin (Amoxicillin -) 500 mg PO TID [facility] Last Admin: 08/02/19 05:50 Dose: 500 mg Heparin Sodium (Porcine) (Heparin -) 5,000 unit SQ BID [facility] Last Admin: 08/02/19 09:49 Dose: 5,000 unit Pantoprazole Sodium (Protonix -) 40 mg PO DAILY [facility] Last Admin: 08/02/19 09:49 Dose: 40 mg Prednisone (Deltasone -) 60 mg PO DAILY [facility] Last Admin: 08/02/19 09:49 Dose: 60 mg A/P s/p Acute Respiratory Failure Vocal Cord Dysfunction Stridor resolved URI - prednisone taper - complete antibiotics - stressed importance of ENT f/u as outpt
== END 2019-08-02 13:04 | disposition home or self-care (01) | DRG 133 ==
LOC: JER 10:58 → JERBED 14:17 → JICU 20:43 → J6S 08-01 13:28
PROVIDERS: ADMIT Family Medicine; ATTEND Family Medicine
PROC: 0BH18EZ Insertion of Endotracheal Airway into Trachea, Via Natural or Artificial Opening Endoscopic (ICD-10-PCS; principal; 2019-07-27)
PROC: 5A1935Z Respiratory Ventilation, Less than 24 Consecutive Hours (ICD-10-PCS; 2019-07-27)
DX: J96.00 Acute respiratory failure, unspecified whether with hypoxia or hypercapnia (principal); J06.9 Acute upper respiratory infection, unspecified; J01.90 Acute sinusitis, unspecified; J45.909 Unspecified asthma, uncomplicated; J38.00 Paralysis of vocal cords and larynx, unspecified; F41.9 Anxiety disorder, unspecified
CPT/HCPCS: 36415; 36600; 70360-TC-FY; 70543-TC; 71045-TC-FY; 71046-TC-FY; 72142-TC; 80048; 80053; 80307; 82375; 82803; 83050; 83735; 84100; 85025; 85027; 87040; 87086; 87804; 93005; 93010; 94002; 94640; 99285-25; J1100; J1644

== ENCOUNTER 2020-07-16 05:14 | Day surgery (SDC) | payer OTHER ==
[2020-07-13 12:40] VITALS: BMI 30.7
[2020-07-16] MEDS ORDERED: MIDAZOLAM HCL 2 MG/2 ML SINGLE DOSE VIAL ONE ×2 (16:48)
[2020-07-16] MEDS ORDERED: ONDANSETRON 4 MG/2 ML VIAL IVPUSH PRN (18:19)
[2020-07-16] MEDS ORDERED: oxyCODONE HCL 5 MG TABLET PO PRN (18:19)
[2020-07-16] MEDS ORDERED: LACTATED RINGERS SOLUTION 1,000 ML IV SCH (18:30)
[2020-07-16 19:23] VITALS: BP 128/85; PULSE 55; TEMP 98.1
== END 2020-07-16 19:30 | disposition home or self-care (01) ==
LOC: JASU-SURG 05:14
PROVIDERS: ATTEND Urology
PROC: 0TF3XZZ Fragmentation in Right Kidney Pelvis, External Approach (ICD-10-PCS; principal; 2020-07-16 14:30)
DX: N20.0 Calculus of kidney (principal)
CPT/HCPCS: 94760

== ENCOUNTER 2020-07-27 21:33 | Inpatient (IN) | payer OTHER ==
[2020-07-27] MEDS ORDERED: ONDANSETRON 4 MG/2 ML VIAL IVPUSH ONE (22:12)
[2020-07-27] MEDS ORDERED: KETOROLAC TROMETHAMINE 60 MG/2 ML VIAL IVPUSH ONE (22:16)
[2020-07-27] MEDS ORDERED: ONDANSETRON 4 MG/2 ML VIAL ONE (22:30)
[2020-07-27] MEDS ORDERED: KETOROLAC TROMETHAMINE 30 MG/1 ML VIAL ONE (22:30)
[2020-07-27 22:50] LABS: BASO % 0.8 % (0-2.0); EOS % 0.8 % (0-4.5); HEMATOCRIT 40.8 % (35.4-49); HEMOGLOBIN 13.6 GM/dL (11.7-16.9); LYMPH % 18.8 % (8-40); MCHC 33.4 g/dl (32.0-35.9); MEAN CELL VOLUME 95.7 fl (80-96); MEAN PLT VOLUME 8.7 fl (7.5-11.1); NEUT % 67.6 % (42.8-82.8); PLATELET COUNT 309 K/MM3 (134-434); RBC 4.26 M/mm3 (4.00-5.60); RDW 13.1 % (11.9-15.9); WHITE BLOOD COUNT 8.2 K/mm3 (4.0-10.0)
[2020-07-27 23:15] LABS: POTASSIUM 4.3 mmol/L (3.5-5.1)
[2020-07-27 23:16] LABS: CALCIUM 8.7 mg/dL (8.5-10.1)
[2020-07-27 23:17] LABS: ALBUMIN 3.5 g/dl (3.4-5.0)
[2020-07-27 23:20] LABS: CREATININE 1.8 mg/dL (0.55-1.3)
[2020-07-27 23:22] LABS: BILIRUBIN,TOTAL 0.4 mg/dL (0.2-1); TOT PROT 7.2 g/dl (6.4-8.2)
[2020-07-28] MEDS ORDERED: TAMSULOSIN HCL 0.4 MG CAP PO ONE (00:30)
[2020-07-28 01:14] LABS: EPI CELLS 3 /uL (0-25.1); HYALINE CASTS 0 /uL (0-3.1); URINE APPEARANCE CLEAR; URINE BACTERIA 6 /uL (0-1359); URINE BILIRUBIN NEGATIVE (NEGATIVE); URINE COLOR YELLOW; URINE GLUCOSE (UA) NEGATIVE (NEGATIVE); URINE KETONE NEGATIVE (NEGATIVE); URINE LEUK ESTERASE NEGATIVE (NEGATIVE); URINE NITRITE NEGATIVE (NEGATIVE); URINE PROTEIN NEGATIVE (NEGATIVE); URINE RBC 32 /uL (0-23.9); URINE WBC 5 /uL (0-25.8)
[2020-07-28] MEDS ORDERED: SODIUM CHLORIDE 0.9% 500 ML INFUS.BAG IV ONE (01:25)
[2020-07-28] MEDS ORDERED: TAMSULOSIN HCL 0.4 MG CAP ONE (01:26)
[2020-07-28] MEDS ORDERED: KETOROLAC TROMETHAMINE 15 MG/ML VIAL IVPUSH PRN (06:10)
[2020-07-28] MEDS ORDERED: KETOROLAC TROMETHAMINE 15 MG/ML VIAL ONE (06:49)
[2020-07-28] MEDS ORDERED: MORPHINE SULFATE 2 MG/ML VIAL IVPUSH PRN (07:24)
[2020-07-28] MEDS ORDERED: SODIUM CHLORIDE 1,000 ML IV SCH (07:45)
[2020-07-28] MEDS ORDERED: TAMSULOSIN HCL 0.4 MG CAP PO SCH (08:30)
[2020-07-28 11:20] LABS: BASO % 0.6 % (0-2.0); EOS % 1.4 % (0-4.5); HEMATOCRIT 37.4 % (35.4-49); HEMOGLOBIN 12.6 GM/dL (11.7-16.9); LYMPH % 23.6 % (8-40); MCH 32.3 pg (25.7-33.7); MCHC 33.6 g/dl (32.0-35.9); MEAN CELL VOLUME 96.3 fl (80-96); MEAN PLT VOLUME 8.8 fl (7.5-11.1); MONO % 10.6 % (3.8-10.2); NEUT % 63.8 % (42.8-82.8); PLATELET COUNT 284 K/MM3 (134-434); RBC 3.89 M/mm3 (4.00-5.60); RDW 13.3 % (11.9-15.9); WHITE BLOOD COUNT 7.1 K/mm3 (4.0-10.0)
[2020-07-28 11:41] LABS: POTASSIUM 4.5 mmol/L (3.5-5.1)
[2020-07-28 11:45] LABS: BLOOD UREA NITROGEN 22.3 mg/dL (7-18); CALCIUM 8.6 mg/dL (8.5-10.1); MAGNESIUM 2.4 mg/dL (1.8-2.4)
[2020-07-28 11:49] LABS: CREATININE 1.7 mg/dL (0.55-1.3); PHOSPHOROUS 2.9 mg/dL (2.5-4.9)
[2020-07-28] MEDS ORDERED: D5-1/2NS+20 MEQ KCL - 20 MEQ/1,000 ML INFUS.BAG IV SCH (12:30)
[2020-07-28 12:37] VITALS: BP 117/63; PULSE 51; TEMP 98.5; BMI 30.2
== END 2020-07-28 15:16 | disposition left against medical advice (07) | DRG 465 ==
LOC: JER 21:33 → FER 21:33 → JERBED 07-28 06:29 → J8W 07-28 08:07
PROVIDERS: ADMIT Hospitalist; ATTEND Family Medicine
DX: N13.2 Hydronephrosis with renal and ureteral calculous obstruction (principal); N17.9 Acute kidney failure, unspecified; K37 Unspecified appendicitis
CPT/HCPCS: 36415; 74176-TC; 76775-TC; 80048; 80053; 81003; 83690; 83735; 84100; 85025; 87086; 93005; 93010; 99285-25; C9803; U0003

== ENCOUNTER 2020-11-18 22:05 | Emergency (ER) | payer OTHER ==
[2020-11-18 22:42] VITALS: BP 120/93; PULSE 79; TEMP 98.4; BMI 26.2
== END 2020-11-18 23:26 | disposition home or self-care (01) ==
LOC: JER 22:05
DX: Z20.822 Contact with and (suspected) exposure to COVID-19 (principal)
CPT/HCPCS: 99283-25; C9803; U0003

== ENCOUNTER 2021-04-04 12:22 | Day surgery (SDC) | payer OTHER ==
[2021-04-04] MEDS ORDERED: morphine CARPU-JECT 4 MG/1 ML DISP.SYRIN IVPUSH ONE ×3 (13:34→21:19)
[2021-04-04] MEDS ORDERED: ONDANSETRON 4 MG/2 ML VIAL IVPUSH ONE (13:34)
[2021-04-04] MEDS ORDERED: SODIUM CHLORIDE 0.9% 500 ML INFUS.BAG IV ONE ×2 (13:34→15:30)
[2021-04-04] MEDS ORDERED: KETOROLAC TROMETHAMINE 30 MG/1 ML VIAL IVPB ONE (13:34)
[2021-04-04] MEDS ORDERED: ONDANSETRON 4 MG/2 ML VIAL ONE (13:59)
[2021-04-04] MEDS ORDERED: KETOROLAC TROMETHAMINE 30 MG/1 ML VIAL ONE (13:59)
[2021-04-04] MEDS ORDERED: morphine SULFATE 4 MG/ML VIAL ONE ×2 (13:59→21:35)
[2021-04-04 14:06] LABS: BASO % 0.4 % (0-2.0); EOS % 0.3 % (0-4.5); HEMATOCRIT 39.7 % (35.4-49); HEMOGLOBIN 13.7 GM/dL (11.7-16.9); LYMPH % 7.5 % (8-40); MCH 32.9 pg (25.7-33.7); MCHC 34.5 g/dl (32.0-35.9); MEAN CELL VOLUME 95.5 fl (80-96); MEAN PLT VOLUME 7.8 fl (7.5-11.1); MONO % 5.3 % (3.8-10.2); NEUT % 86.5 % (42.8-82.8); PLATELET COUNT 295 10^3/uL (134-434); RBC 4.16 M/mm3 (4.00-5.60); WHITE BLOOD COUNT 12.4 K/mm3 (4.0-10.0)
[2021-04-04 14:10] LABS: INR 0.88 (0.83-1.09); PROTHROMBIN TIME (PATIENT) 10.9 SEC (9.7-13.0)
[2021-04-04 14:13] LABS: ACTIVATED PTT 29.8 SECONDS (25.2-36.5)
[2021-04-04 14:25] LABS: CALCIUM 8.8 mg/dL (8.5-10.1)
[2021-04-04 14:26] LABS: ALBUMIN 3.9 g/dl (3.4-5.0); BLOOD UREA NITROGEN 17.2 mg/dL (7-18)
[2021-04-04 14:29] LABS: CREATININE 1.1 mg/dL (0.55-1.3)
[2021-04-04 14:30] LABS: BILIRUBIN,TOTAL 0.7 mg/dL (0.2-1); TOT PROT 7.6 g/dl (6.4-8.2)
[2021-04-04 19:10] LABS: EPI CELLS 21 /uL (0-25.1); HYALINE CASTS 3 /uL (0-3.1); URINE APPEARANCE CLEAR; URINE BACTERIA 50 /uL (0-1359); URINE BILIRUBIN NEGATIVE (NEGATIVE); URINE COLOR YELLOW; URINE GLUCOSE (UA) NEGATIVE (NEGATIVE); URINE KETONE TRACE (NEGATIVE); URINE LEUK ESTERASE NEGATIVE (NEGATIVE); URINE NITRITE NEGATIVE (NEGATIVE); URINE PROTEIN 1+ (NEGATIVE); URINE RBC 84 /uL (0-23.9); URINE UROBILINOGEN 0.2 mg/dL (0.2-1.0); URINE WBC 10 /uL (0-25.8)
[2021-04-04] MEDS ORDERED: PIPERACILLIN/TAZOB 4.5 GM 4.5 GM in DEXTROSE 5%-WATER 100 ML IVPB ONE (21:49)
[2021-04-04] MEDS ORDERED: PIPERACILLIN/TAZOB 4.5 GM 4.5 GM/100 ML BAG IVPB ONE (22:02)
[2021-04-04] MEDS ORDERED: ACETAMINOPHEN 1000 MG/100 ML VIAL (NON FORMULARY) IVPB PRN (23:44)
[2021-04-04] MEDS ORDERED: SODIUM CHLORIDE 1,000 ML IV SCH (23:45)
[2021-04-05] MEDS: MORPHINE SULFATE 2 MG/ML VIAL IVPUSH PRN ×2 (01:33→05:42)
[2021-04-05] MEDS ORDERED: PIPERACILLIN/TAZOB 3.375 GM 3.375 GM/50 ML BAG IVPB SCH (02:00)
[2021-04-05] MEDS ORDERED: PIPERACILLIN/TAZOB 3.375 GM 3.375 GM in DEXTROSE 5%-WATER - 3.375 GM/50 ML IVPB IVPB SCH ×2 (02:03→10:00)
[2021-04-05] MEDS ORDERED: DEXTROSE 5%-WATER - 50 ML IVPB ONE ×3 (02:11→10:47)
[2021-04-05] MEDS ORDERED: PIPERACILLIN/TAZOBACTAM 3.375 GM VIAL IVPB ONE ×3 (02:11→10:47)
[2021-04-05 04:16] VITALS: BMI 28.3
[2021-04-05] MEDS ORDERED: PIPERACILLIN/TAZOB 3.375 GM 3.375 GM in DEXTROSE 5%-WATER - 50 ML IVPB SCH ×3 (05:00→18:00)
[2021-04-05] MEDS ORDERED: PROPOFOL 20 ML ONE (06:26)
[2021-04-05] MEDS ORDERED: fentaNYL CITRATE 250 MCG/5 ML VIAL ONE (06:26)
[2021-04-05] MEDS ORDERED: ROCURONIUM BROMIDE 50 MG/5 ML SYRINGE ONE (06:26)
[2021-04-05] MEDS ORDERED: SUCCINYLCHOLINE CHLORIDE 200 MG/10 ML SYRINGE ONE (06:26)
[2021-04-05] MEDS ORDERED: DEXAMETHASONE SOD PHOSPHATE 4 MG/1 ML VIAL ONE (07:08)
[2021-04-05] MEDS ORDERED: NEOSTIGMINE METHYLSULFATE 0.5 MG/ML - 10 ML MDV ONE (07:29)
[2021-04-05] MEDS ORDERED: GLYCOPYRROLATE 0.2 MG/1 ML VIAL ONE (07:29)
[2021-04-05] MEDS ORDERED: KETOROLAC TROMETHAMINE 30 MG/1 ML VIAL ONE (07:37)
[2021-04-05] MEDS ORDERED: BUPIVACAINE HCL/PF 0.5% (5MG/ML) 10 ML VIAL ONE (07:38)
[2021-04-05] MEDS ORDERED: ONDANSETRON 4 MG/2 ML VIAL IVPUSH PRN ×2 (07:48→08:34)
[2021-04-05] MEDS ORDERED: BUPIVACAINE HCL/PF 0.5% (5MG/ML) 10 ML VIAL IJ ONE (07:50)
[2021-04-05] MEDS ORDERED: LACTATED RINGERS SOLUTION 1,000 ML IV SCH ×2 (08:00→08:34)
[2021-04-05] MEDS ORDERED: ALBUTEROL SO4 0.083% IH SOL 2.5 MG/3 ML VIAL.NEB. NEB ONE ×4 (08:06→08:34)
[2021-04-05] MEDS ORDERED: SODIUM CHLORIDE 1,000 ML IV SCH (08:34)
[2021-04-05] MEDS ORDERED: MORPHINE SULFATE 2 MG/ML VIAL IVPUSH PRN (08:34)
[2021-04-05 11:34] LABS: HEMATOCRIT 37.2 % (35.4-49); HEMOGLOBIN 12.7 GM/dL (11.7-16.9); MCH 32.6 pg (25.7-33.7); MCHC 34.2 g/dl (32.0-35.9); MEAN CELL VOLUME 95.5 fl (80-96); MEAN PLT VOLUME 8.7 fl (7.5-11.1); PLATELET COUNT 270 10^3/uL (134-434); RDW 14.3 % (11.9-15.9); WHITE BLOOD COUNT 14.3 K/mm3 (4.0-10.0)
[2021-04-05 12:03] LABS: BLOOD UREA NITROGEN 10.2 mg/dL (7-18); CALCIUM 8.1 mg/dL (8.5-10.1)
[2021-04-05 12:07] LABS: BILIRUBIN,TOTAL 1.2 mg/dL (0.2-1); PHOSPHOROUS 2.3 mg/dL (2.5-4.9); TOT PROT 6.3 g/dl (6.4-8.2)
[2021-04-05 12:11] LABS: ALBUMIN 3.1 g/dl (3.4-5.0)
[2021-04-05 14:28] VITALS: BP 108/57; PULSE 56; TEMP 98.2
== END 2021-04-05 16:16 | disposition home or self-care (01) ==
LOC: JER 12:22 → JASUSAT 22:53 → UNDOADMIN 22:53 → JERBED 22:53 → J7W 04-05 01:17 → JASUSAT 04-05 16:16
PROVIDERS: ATTEND Family Medicine
PROC: 0DTJ4ZZ Resection of Appendix, Percutaneous Endoscopic Approach (ICD-10-PCS; principal; 2021-04-04)
DX: K35.80 Unspecified acute appendicitis (principal)
CPT/HCPCS: 36415; 71046-TC-FY; 74176-TC; 74177-TC; 76705-TC; 80053; 81003; 83735; 84100; 85025; 85027; 85610; 85730; 86850; 86900; 86901; 87070; 87075; 87086; 87205; 88304-TC; 93005; 93010; 94010; 94760; 99285-25; C9803; J0131; Q9967; U0003; U0005

== ENCOUNTER 2021-08-19 14:14 | Emergency (ER) | payer OTHER ==
[2021-08-19 14:46] VITALS: BP 122/66; PULSE 63; TEMP 98.7; BMI 29.8
== END 2021-08-19 16:55 | disposition home or self-care (01) ==
LOC: JER 14:14
DX: U07.1 COVID-19 (principal)
CPT/HCPCS: 71046-TC-FY; 87651; 87804; 99284-25; C9803; U0003; U0005